=== PATIENT | female | born 1960 | race African-American/Black ===

== ENCOUNTER 2016-12-11 13:39 | Emergency (ER) | payer MEDICAID ==
[~2016-12-11] VITALS: Ht 167.6 cm; Wt 86.0 kg
[~2016-12-11 13:39] MED LIST: DOCU-138 PO; GABA-290 PO; INSU3INS6 SUBCUT; LISI-186 PO; METF500T4 PO; [UNRECOGNIZED DRUG - OTHER]
[2016-12-11] MEDS ORDERED: SODIUM CHLORIDE 0.9% 1,000 ML IV ONE ×2 (15:03→17:14)
[2016-12-11 15:20] LABS: BASOPHILS % 0.5 % (0.0-2.0); HEMATOCRIT. 35.9 % (36.0-48.0); HEMOGLOBIN. 11.6 g/dL (12.0-16.0); LYMPHOCYTES % 21.6 % (20.0-50.0); MEAN CORPUSCULAR HEMOGLOBIN 27.6 pg (28.0-32.0); MEAN CORPUSCULAR HGB CONC 32.3 g/dL (31.0-37.0); MEAN CORPUSCULAR VOLUME 85.3 fL (81.0-99.0); MEAN PLATELET VOLUME 9.2 fl (7.4-10.4); MONOCYTES % 7.6 % (2.0-8.0); NEUTROPHILS % 68.3 % (40.0-76.0); PLATELET 196 x1000/uL (130-400); RED CELL DISTRIBUTION WIDTH 12.5 % (11.6-14.6); WHITE BLOOD COUNT 7.8 x1000/uL (4.5-11.0)
[2016-12-11 15:27] LABS: CALCIUM 8.2 mg/dL (8.5-10.1); CHLORIDE 101 mEq/L (98-107); INDEX HEMOLYSI 1 (1-3); INDEX ICTERIC 1 (1-4); INDEX LIPEMIC 1 (1-3)
[2016-12-11 15:28] LABS: ALBUMIN 2.8 g/dL (3.4-5.0); ANION GAP 16; CARBON DIOXIDE 23 mEq/L (21-32); LIPASE 74 IU/L (73-393); UREA NITROGEN BLOOD 22 mg/dL (7-21)
[2016-12-11 15:34] LABS: ALANINE AMINOTRANSFERASE 11 IU/L (13-61); AMYLASE 27 IU/L (25-115); eGFR > 60 mL/min (>60)
[2016-12-11 15:35] LABS: BETA HYDROXYBUTYRATE 2.8 mMol/L (0.0-0.3); TROPONIN I < 0.02 ng/mL (0.00-0.04)
[2016-12-11 16:16] LABS: BG BASE EXCESS -4.3 mmol/L (-2.0-2.0); BG CARBOXYHEMOGLOBIN 0.5 % (0.5-1.5); BG DEOXYHEMOGLOBIN 3.4 % (0.0-5.0); BG FRACTION INSPIRED OXYGEN 21; BG HCO3 ACT 19.9 mmol/L (22.0-26.0); BG METHEMOGLOBIN 0.2 % (0.0-1.5); BG OXYGEN SATURATION 96.6 % (92.0-98.5); BG OXYHEMOGLOBIN 95.9 % (94.0-97.0); BG PH 7.386 (7.350-7.450); BG PO2 89.7 mmHg (75.0-100.0); BG SAMPLE SITE RIGHT BRACHIAL; BG TOTAL HEMOGLOBIN 11.9 g/dL (12.0-18.0); BG VENT MODE ROOM AIR
[2016-12-11 17:26] LABS: CLARITY URINE CLEAR (CLEAR); COLOR URINE YELLOW (YELLOW); GLUCOSE URINE 3+ (NEGATIVE); KETONES URINE 2+ (NEGATIVE); LEUKOCYTE ESTERASE URINE NEGATIVE (NEGATIVE); NITRITE URINE NEGATIVE (NEGATIVE); OCCULT BLOOD URINE NEGATIVE (NEGATIVE); PH URINE 5.5 (4.5-8.0); PROTEIN URINE NEGATIVE (NEGATIVE); SPECIFIC GRAVITY URINE 1.031 (1.005-1.030)
[2016-12-11 17:48] LABS: RBC URINE 0-2 /hpf (0-2); WBC URINE 0-2 /hpf (0-2)
[2016-12-11 17:49] LABS: BACTERIA URINE TRACE; SQUAMOUS EPITHELIAL CELL URINE 1+ /lpf (RARE/1+)
[2016-12-11 18:12] VITALS: BP 104/61
== END 2016-12-11 18:28 | disposition home or self-care (01) ==
LOC: ER 17:10
DX: E86.0 Dehydration (principal); E11.9 Type 2 diabetes mellitus without complications; I10 Essential (primary) hypertension; M79.7 Fibromyalgia; Z79.899 Other long term (current) drug therapy; Z79.84 Long term (current) use of oral hypoglycemic drugs
CPT/HCPCS: 36415; 36600; 71010; 80053; 81001; 82010; 82150; 82375; 82805; 82962; 83690; 84484; 85025; 93005; 96360; 96361; 99285; J7030; Z7610

== ENCOUNTER 2018-03-22 09:08 | Inpatient (IN) | payer MEDICAID ==
[2018-03-22] VITALS (13 sets, daily range): BP systolic 115–159; BP diastolic 57–89
[~2018-03-22] VITALS: Ht 167.6 cm; Wt 95.1 kg
[~2018-03-22 09:08] MED LIST changes: -METF500T4 PO; +METF500T6 PO
[2018-03-22] MEDS ORDERED: SODIUM CHLORIDE 0.9% 1,000 ML IV ONE ×2 (10:15→13:15)
[2018-03-22 10:27] LABS: BASOPHILS % 0.6 % (0.0-2.0); EOSINOPHILS % 0.2 % (0.0-5.0); HEMOGLOBIN. 13.1 g/dL (12.0-16.0); LYMPHOCYTES % 19.8 % (20.0-50.0); MEAN CORPUSCULAR HEMOGLOBIN 28.7 pg (28.0-32.0); MEAN CORPUSCULAR VOLUME 89.6 fL (81.0-99.0); MEAN PLATELET VOLUME 10.2 fl (7.4-10.4); MONOCYTES % 7.8 % (2.0-8.0); NEUTROPHILS % 71.6 % (40.0-76.0); PLATELET 225 x1000/uL (130-400); RED BLOOD CELL COUNT 4.58 mill/uL (4.2-5.4); RED CELL DISTRIBUTION WIDTH 13.4 % (11.6-14.6)
[2018-03-22 10:35] LABS: PROTHROMBIN TIME 9.6 sec (9.1-11.1)
[2018-03-22 12:45] LABS: CHLORIDE 103 mEq/L (98-107)
[2018-03-22 12:55] LABS: BETA HYDROXYBUTYRATE 8.8 mMol/L (0.0-0.3)
[2018-03-22] MEDS ORDERED: INSULIN REGULAR (DRIP) 100 UNITS in SODIUM CHLORIDE 0.9% 100 ML IV ONE (13:04)
[2018-03-22 13:05] LABS: CLARITY URINE CLEAR (CLEAR); COLOR URINE YELLOW (YELLOW); KETONES URINE 4+ (NEGATIVE); LEUKOCYTE ESTERASE URINE NEGATIVE (NEGATIVE); NITRITE URINE NEGATIVE (NEGATIVE); OCCULT BLOOD URINE TRACE (NEGATIVE); PROTEIN URINE TRACE (NEGATIVE); SPECIFIC GRAVITY URINE 1.026 (1.005-1.030); UROBILINOGEN URINE 0.2 E.U./dL (0.2-1.0)
[2018-03-22] MEDS ORDERED: DEXT 5%/0.45% NACL 1000ML 1,000 ML IV ONE (13:15)
[2018-03-22] MEDS ORDERED: INSULIN REGULAR (DRIP) 100 UNITS in SODIUM CHLORIDE 0.9% 99 ML IV ONE (13:30)
[2018-03-22] MEDS ORDERED: ONDANSETRON HCL 4MG/2ML VIAL IV PRN (13:45)
[2018-03-22] MEDS ORDERED: MORPHINE SULFATE 4 MG/ML CPJ (NOT FOR IM USE) IV PRN (13:45)
[2018-03-22] MEDS ORDERED: DEXT 5%/0.45% NACL 1000ML 1,000 ML IV SCH (13:45)
[2018-03-22 15:12] LABS: CHLORIDE 107 mEq/L (98-107)
[2018-03-22 15:19] LABS: PHOSPHORUS 2.1 mg/dL (2.5-4.9)
[2018-03-22] MEDS ORDERED: DEXTROSE 50% WATER 50ML SYRINGE IV PRN ×2 (16:30)
[2018-03-22] MEDS ORDERED: BLOOD SUGAR DIAGNOSTIC STRIP TEST SCH (16:30)
[2018-03-22 16:53] LABS: CHLORIDE 110 mEq/L (98-107)
[2018-03-22] MEDS: PANTOPRAZOLE SODIUM 40 MG/VIAL IV SCH (17:25)
[2018-03-22 18:54] LABS: CHLORIDE 108 mEq/L (98-107)
[2018-03-22] MEDS: POTASSIUM CHLORIDE INJ 40 MEQ in DEXT 5% WATER 250 ML IV NR ×2 (19:35→20:38)
[2018-03-22] MEDS: INSULIN REGULAR (DRIP) 100 UNITS in SODIUM CHLORIDE 0.9% 100 ML IV SCH (20:01)
[2018-03-22 20:55] LABS: CHLORIDE 107 mEq/L (98-107)
[2018-03-22] MEDS: DEXT 5%/0.45% NACL KCL 20MEQ/L 1,000 ML IV SCH (23:41)
[2018-03-23] VITALS (34 sets, daily range): BP systolic 92–138; BP diastolic 51–83
[2018-03-23] MEDS: DEXT 5%/0.45% NACL KCL 20MEQ/L 1,000 ML IV SCH ×2 (06:31→17:25)
[2018-03-23 06:32] LABS: CHLORIDE 110 mEq/L (98-107)
[2018-03-23] MEDS: PANTOPRAZOLE SODIUM 40 MG/VIAL IV SCH (09:23)
[2018-03-23 12:53] LABS: CHLORIDE 111 mEq/L (98-107)
[2018-03-23] MEDS ORDERED: INSULIN REGULAR (HUMULIN R) 300UNITS/3ML SUBCUT ONE (15:15)
[2018-03-23] MEDS ORDERED: SODIUM BICARBONATE 8.4% 1 MEQ/ML 50ML SYR IV ONE (15:15)
[2018-03-23] MEDS ORDERED: DEXTROSE 50% WATER 50ML SYRINGE IV ONE (15:15)
[2018-03-23 19:06] LABS: CHLORIDE 108 mEq/L (98-107)
[2018-03-23] MEDS: INSULIN REGULAR (DRIP) 100 UNITS in SODIUM CHLORIDE 0.9% 100 ML IV SCH (22:17)
[2018-03-24] VITALS (16 sets, daily range): BP systolic 90–139; BP diastolic 48–70
[2018-03-24] MEDS: DEXT 5%/0.45% NACL KCL 20MEQ/L 1,000 ML IV SCH (01:22)
[2018-03-24 06:19] LABS: CHLORIDE 111 mEq/L (98-107)
[2018-03-24] MEDS ORDERED: DEXTROSE 50% WATER 50ML SYRINGE IV PRN (07:15)
[2018-03-24] MEDS ORDERED: BLOOD SUGAR DIAGNOSTIC STRIP TEST SCH (07:20)
[2018-03-24] MEDS: INSULIN LISPRO 100 UNITS/ML SUBCUT SCH ×2 (07:21→12:32)
[2018-03-24] MEDS ORDERED: INSULIN GLARGINE UD 100 UNITS/ML SYR SUBCUT NR (08:30)
[2018-03-24 13:05] LABS: CHLORIDE 107 mEq/L (98-107)
[2018-03-24] MEDS ORDERED: INSULIN GLARGINE UD 100 UNITS/ML SYR SUBCUT SCH (22:00)
== END 2018-03-24 15:29 | disposition home or self-care (01) | DRG 420 ==
LOC: ER 09:43 → CVICU 13:15 → EDBEDREQSVC 13:16 → EDBEDREQ 13:16 → EDBEDREQTM 13:16 → ENRESERV 14:13 → MICUSO 15:24
PROVIDERS: ADMIT Internal Medicine; ATTEND Internal Medicine
DX: E11.10 Type 2 diabetes mellitus with ketoacidosis without coma (principal); E44.1 Mild protein-calorie malnutrition; I10 Essential (primary) hypertension; M79.7 Fibromyalgia; E87.1 Hypo-osmolality and hyponatremia
CPT/HCPCS: 36415; 71045; 80048; 80053; 81003; 82010; 82962; 83036; 83605; 83735; 83880; 84100; 84484; 85025; 85610; 96361; 96374; 99285; C9113; J1815; J2270; J2405; J3480; J3490; J7030; J7050; J7060

== ENCOUNTER 2020-08-05 07:25 | Inpatient (IN) | payer BC, MEDICAID ==
[~2020-08-05] VITALS: Ht 167.6 cm; Wt 83.6 kg
[~2020-08-05 07:25] MED LIST changes: +AMLO5TAB88 MT; +METF-415 MT; -METF500T6 PO; -[UNRECOGNIZED DRUG - OTHER]
[2020-08-05] MEDS ORDERED: ACETAMINOPHEN 325MG TABLET PO STA (08:34)
[2020-08-05 10:04] LABS: BASOPHILS % 0.4 % (0.0-2.0); CHLORIDE 96 mEq/L (98-107); EOSINOPHILS % 0.3 % (0.0-5.0); HEMATOCRIT. 40.3 % (36.0-48.0); HEMOGLOBIN. 12.8 g/dL (12.0-16.0); LYMPHOCYTES % 11.7 % (20.0-50.0); MEAN CORPUSCULAR HEMOGLOBIN 27.1 pg (28.0-32.0); MEAN CORPUSCULAR VOLUME 85.4 fL (81.0-99.0); MEAN PLATELET VOLUME 11.3 fl (7.4-10.4); MONOCYTES % 11.3 % (2.0-8.0); NEUTROPHILS % 76.3 % (40.0-76.0); PLATELET 134 x1000/uL (130-400); RED BLOOD CELL COUNT 4.73 mill/uL (4.2-5.4); RED CELL DISTRIBUTION WIDTH 12.2 % (11.6-14.6)
[2020-08-05 10:06] LABS: PROTHROMBIN TIME 10.6 sec (9.6-11.0)
[2020-08-05] MEDS ORDERED: PIPERACILLIN/TAZ 3.375G PREMIX 50 ML IV ONE (12:45)
[2020-08-05] MEDS ORDERED: VANCOMYCIN 1 G PREMIX 200 ML IV ONE (12:45)
[2020-08-05] MEDS ORDERED: DIPHENHYDRAMINE 50MG/ML VIAL IV PRN (12:45)
[2020-08-05] MEDS ORDERED: ACETAMINOPHEN 325MG TABLET PO PRN (12:45)
[2020-08-05] MEDS ORDERED: ONDANSETRON HCL 4MG/2ML INJ IV PRN (12:45)
[2020-08-05] MEDS ORDERED: CLONIDINE 0.1MG TABLET PO PRN (12:45)
[2020-08-05] MEDS ORDERED: VANCOMYCIN 1 G PREMIX 200 ML IV SCH (14:15)
[2020-08-05] MEDS ORDERED: DEXTROSE 50% WATER 50ML SYRINGE IV PRN (15:15)
[2020-08-05] MEDS: DEXAMETHASONE 10 MG/ML VIAL IV SCH (15:15)
[2020-08-05] MEDS: CEFTRIAXONE 1 G PREMIX 50 ML IV SCH (15:15)
[2020-08-05] MEDS: FAMOTIDINE 20MG/2ML VIAL IV SCH (16:26)
[2020-08-05] MEDS ORDERED: HYDROCODONE/ACETAMINOPHEN 5/325MG TABLET PO PRN (16:26)
[2020-08-05] MEDS ORDERED: ENOXAPARIN 40MG/0.4ML SYR SUBCUT SCH (16:45)
[2020-08-05] MEDS: BLOOD SUGAR DIAGNOSTIC STRIP TEST SCH ×2 (17:00→21:00)
[2020-08-05] MEDS: AZITHROMYCIN 500 MG in DEXT 5% WATER 250 ML IV SCH (17:00)
[2020-08-05 18:17] LABS: BG BASE EXCESS -6.9 mmol/L (-2.0-2.0); BG CARBOXYHEMOGLOBIN 0.6 % (0.5-1.5); BG DEOXYHEMOGLOBIN 0.9 % (0.0-5.0); BG HCO3 ACT 15.2 mmol/L (22.0-26.0); BG METHEMOGLOBIN 0.1 % (0.0-1.5); BG OXYGEN SATURATION 99.1 % (92.0-98.5); BG OXYHEMOGLOBIN 98.4 % (94.0-97.0); BG PCO2 22.4 mmHg (35.0-45.0); BG PH 7.449 (7.350-7.450); BG PO2 144.3 mmHg (75.0-100.0); BG SAMPLE SITE RIGHT RADIAL; BG TOTAL HEMOGLOBIN 12.6 g/dL (12.0-18.0); BG VENT MODE ROOM AIR
[2020-08-05] MEDS: INSULIN LISPRO 100 UNITS/ML SUBCUT SCH ×2 (18:20→21:00)
[2020-08-05 19:41] LABS: CLARITY URINE CLOUDY (CLEAR); COLOR URINE YELLOW (YELLOW); KETONES URINE 3+ (NEGATIVE); LEUKOCYTE ESTERASE URINE 1+ (NEGATIVE); NITRITE URINE NEGATIVE (NEGATIVE); OCCULT BLOOD URINE NEGATIVE (NEGATIVE); PH URINE 5.5 (4.5-8.0); PROTEIN URINE 1+ (NEGATIVE); SPECIFIC GRAVITY URINE 1.023 (1.005-1.030)
[2020-08-05] MEDS: ASCORBIC ACID 500 MG TABLET PO SCH (21:00)
[2020-08-05] MEDS ORDERED: INSULIN GLARGINE UD 100 UNITS/ML SYR SUBCUT SCH (22:00)
[2020-08-05] MEDS: VANCOMYCIN 750 MG PREMIX 150 ML IV SCH (23:00)
[2020-08-06 01:40] LABS: CHLORIDE 99 mEq/L (98-107)
[2020-08-06] MEDS: VANCOMYCIN 750 MG PREMIX 150 ML IV SCH (07:00)
[2020-08-06] MEDS: INSULIN LISPRO 100 UNITS/ML SUBCUT SCH ×4 (08:20→23:03)
[2020-08-06] MEDS: ASCORBIC ACID 500 MG TABLET PO SCH ×2 (09:00→23:03)
[2020-08-06] MEDS: CHOLECALCIFEROL (D3) 1000 UNIT TABLET PO SCH (09:00)
[2020-08-06] MEDS: FAMOTIDINE 20MG/2ML VIAL IV SCH (09:00)
[2020-08-06] MEDS: ZINC SULFATE 220 MG ( 50 ) CAPSULE PO SCH (09:00)
[2020-08-06] MEDS: BLOOD SUGAR DIAGNOSTIC STRIP TEST SCH ×4 (09:16→21:00)
[2020-08-06 10:19] LABS: BASOPHILS % 0.5 % (0.0-2.0); EOSINOPHILS % 0.4 % (0.0-5.0); HEMATOCRIT. 35.6 % (36.0-48.0); HEMOGLOBIN. 11.4 g/dL (12.0-16.0); LYMPHOCYTES % 19.7 % (20.0-50.0); MEAN CORPUSCULAR HEMOGLOBIN 26.9 pg (28.0-32.0); MEAN CORPUSCULAR VOLUME 83.7 fL (81.0-99.0); MEAN PLATELET VOLUME 10.8 fl (7.4-10.4); MONOCYTES % 14.9 % (2.0-8.0); NEUTROPHILS % 64.5 % (40.0-76.0); PLATELET 140 x1000/uL (130-400); RED BLOOD CELL COUNT 4.25 mill/uL (4.2-5.4); RED CELL DISTRIBUTION WIDTH 11.8 % (11.6-14.6)
[2020-08-06 10:29] LABS: CHLORIDE 100 mEq/L (98-107)
[2020-08-06 10:36] LABS: LDL CHOLESTEROL 53 mg/dL (5-100)
[2020-08-06 10:38] LABS: HDL CHOLESTEROL 54 mg/dL (40-59); VANCOMYCIN TROUGH 8.5 ug/mL (5.0-10.0)
[2020-08-06] MEDS ORDERED: VANCOMYCIN 1 G PREMIX 200 ML IV SCH (11:00)
[2020-08-06] MEDS: DEXAMETHASONE 10 MG/ML VIAL IV SCH (12:37)
[2020-08-06] MEDS: ENOXAPARIN 40MG/0.4ML SYR SUBCUT SCH (15:00)
[2020-08-06] MEDS: CEFTRIAXONE 1 G PREMIX 50 ML IV SCH (15:15)
[2020-08-06] MEDS: AZITHROMYCIN 500 MG in DEXT 5% WATER 250 ML IV SCH (17:00)
[2020-08-06] MEDS ORDERED: INSULIN GLARGINE UD 100 UNITS/ML SYR SUBCUT SCH (22:00)
[2020-08-06 23:00] VITALS: BP_SYST 128
[2020-08-07 04:00] VITALS: BP 118/76
[2020-08-07 05:31] LABS: CHLORIDE 100 mEq/L (98-107)
[2020-08-07 06:30] LABS: HEMATOCRIT 33.5 % (36.0-48.0); HEMOGLOBIN 10.9 g/dL (12.0-16.0); MEAN CORPUSCULAR HEMOGLOBIN 27.5 pg (28.0-32.0); MEAN CORPUSCULAR VOLUME 84.3 fL (81.0-99.0); PLATELET 166 x1000/uL (130-400); RED BLOOD CELL COUNT 3.98 mill/uL (4.2-5.4); RED CELL DISTRIBUTION WIDTH 11.7 % (11.6-14.6)
[2020-08-07] MEDS: BLOOD SUGAR DIAGNOSTIC STRIP TEST SCH ×4 (06:39→21:59)
[2020-08-07 08:00] VITALS: BP 118/72
[2020-08-07] MEDS: INSULIN LISPRO 100 UNITS/ML SUBCUT SCH ×4 (08:31→22:02)
[2020-08-07] MEDS: ZINC SULFATE 220 MG ( 50 ) CAPSULE PO SCH (09:04)
[2020-08-07] MEDS: ASCORBIC ACID 500 MG TABLET PO SCH ×2 (09:04→21:59)
[2020-08-07] MEDS: FAMOTIDINE 20MG/2ML VIAL IV SCH (09:04)
[2020-08-07] MEDS: CHOLECALCIFEROL (D3) 1000 UNIT TABLET PO SCH (09:04)
[2020-08-07] MEDS: DEXAMETHASONE 10 MG/ML VIAL IV SCH (09:05)
[2020-08-07] MEDS: ENOXAPARIN 40MG/0.4ML SYR SUBCUT SCH (09:05)
[2020-08-07 12:00] VITALS: BP 120/76
[2020-08-07 16:00] VITALS: BP 116/64
[2020-08-07] MEDS ORDERED: INSULIN LISPRO 100 UNITS/ML SUBCUT NR (18:00)
[2020-08-07] MEDS ORDERED: CEFTRIAXONE 1,000 MG in DEXTROSE 5% WATER 50 ML IV SCH (20:00)
[2020-08-07] MEDS: AZITHROMYCIN 500 MG in DEXT 5% WATER 250 ML IV SCH (21:58)
[2020-08-07] MEDS: INSULIN GLARGINE UD 100 UNITS/ML SYR SUBCUT SCH (22:02)
[2020-08-08] VITALS: BP 101/59
[2020-08-08] MEDS: TEMAZEPAM 15MG CAPSULE PO PRN ×2 (00:46→23:22)
[2020-08-08 04:00] VITALS: BP 115/57
[2020-08-08] MEDS: BLOOD SUGAR DIAGNOSTIC STRIP TEST SCH ×4 (06:25→21:48)
[2020-08-08] MEDS: INSULIN LISPRO 100 UNITS/ML SUBCUT SCH ×4 (06:27→21:47)
[2020-08-08 08:00] VITALS: BP 111/63
[2020-08-08] MEDS: ENOXAPARIN 40MG/0.4ML SYR SUBCUT SCH (08:35)
[2020-08-08] MEDS: DEXAMETHASONE 10 MG/ML VIAL IV SCH (08:35)
[2020-08-08] MEDS: ASCORBIC ACID 500 MG TABLET PO SCH ×2 (08:35→21:45)
[2020-08-08] MEDS: FAMOTIDINE 20MG/2ML VIAL IV SCH ×2 (08:35→17:23)
[2020-08-08] MEDS: CHOLECALCIFEROL (D3) 1000 UNIT TABLET PO SCH (08:35)
[2020-08-08] MEDS: ZINC SULFATE 220 MG ( 50 ) CAPSULE PO SCH (08:35)
[2020-08-08] MEDS: INSULIN GLARGINE UD 100 UNITS/ML SYR SUBCUT SCH ×2 (10:02→23:23)
[2020-08-08 12:00] VITALS: BP 110/65
[2020-08-08] MEDS ORDERED: INSULIN LISPRO 100 UNITS/ML SUBCUT NR (12:45)
[2020-08-08 16:00] VITALS: BP 109/65
[2020-08-08] MEDS ORDERED: AZITHROMYCIN 500 MG TABLET PO SCH (17:00)
[2020-08-08] MEDS: METOCLOPRAMIDE HCL 10MG/2ML VIAL IV SCH ×2 (17:22→23:22)
[2020-08-08] MEDS: ALBUTEROL 6.7GM HFA INHALER ORI SCH ×2 (17:34→23:21)
[2020-08-08 20:00] VITALS: BP 111/64
[2020-08-08] MEDS ORDERED: INSULIN LISPRO 100 UNITS/ML SUBCUT SCH (20:45)
[2020-08-08] MEDS ORDERED: INSULIN GLARGINE UD 100 UNITS/ML SYR SUBCUT SCH (22:00)
[2020-08-09] VITALS (7 sets, daily range): BP systolic 92–117; BP diastolic 62–70
[2020-08-09] MEDS: BLOOD SUGAR DIAGNOSTIC STRIP TEST SCH ×4 (06:39→21:13)
[2020-08-09] MEDS: METOCLOPRAMIDE HCL 10MG/2ML VIAL IV SCH ×4 (06:39→23:26)
[2020-08-09] MEDS: ALBUTEROL 6.7GM HFA INHALER ORI SCH ×2 (06:39→10:27)
[2020-08-09] MEDS: INSULIN LISPRO 100 UNITS/ML SUBCUT SCH ×4 (06:40→21:16)
[2020-08-09] MEDS: ZINC SULFATE 220 MG ( 50 ) CAPSULE PO SCH (08:38)
[2020-08-09] MEDS: ENOXAPARIN 40MG/0.4ML SYR SUBCUT SCH (08:38)
[2020-08-09] MEDS: ASCORBIC ACID 500 MG TABLET PO SCH ×2 (08:38→21:13)
[2020-08-09] MEDS: CHOLECALCIFEROL (D3) 1000 UNIT TABLET PO SCH (08:39)
[2020-08-09] MEDS: FAMOTIDINE 20MG/2ML VIAL IV SCH ×2 (08:39→17:56)
[2020-08-09] MEDS: DEXAMETHASONE 4MG/ML 1ML VIAL IV SCH (08:39)
[2020-08-09] MEDS: INSULIN GLARGINE UD 100 UNITS/ML SYR SUBCUT SCH ×2 (10:24→23:29)
[2020-08-09] MEDS: TEMAZEPAM 15MG CAPSULE PO PRN (21:13)
[2020-08-10] MEDS: METOCLOPRAMIDE HCL 10MG/2ML VIAL IV SCH ×3 (06:11→17:30)
[2020-08-10] MEDS: BLOOD SUGAR DIAGNOSTIC STRIP TEST SCH ×4 (07:12→21:09)
[2020-08-10] MEDS: INSULIN LISPRO 100 UNITS/ML SUBCUT SCH ×4 (07:50→22:44)
[2020-08-10 08:00] VITALS: BP 117/62
[2020-08-10] MEDS: CHOLECALCIFEROL (D3) 1000 UNIT TABLET PO SCH (09:49)
[2020-08-10] MEDS: ASCORBIC ACID 500 MG TABLET PO SCH ×2 (09:49→22:07)
[2020-08-10] MEDS: ZINC SULFATE 220 MG ( 50 ) CAPSULE PO SCH (09:49)
[2020-08-10] MEDS: ENOXAPARIN 40MG/0.4ML SYR SUBCUT SCH (09:49)
[2020-08-10] MEDS: FAMOTIDINE 20MG/2ML VIAL IV SCH ×2 (09:49→17:30)
[2020-08-10] MEDS: DEXAMETHASONE 4MG/ML 1ML VIAL IV SCH (09:55)
[2020-08-10] MEDS: INSULIN GLARGINE UD 100 UNITS/ML SYR SUBCUT SCH ×2 (10:12→23:38)
[2020-08-10 12:00] VITALS: BP 110/69
[2020-08-10 16:00] VITALS: BP 119/79
[2020-08-10 20:29] VITALS: BP 141/76
[2020-08-10] MEDS: TEMAZEPAM 15MG CAPSULE PO PRN (23:30)
[2020-08-10] MEDS: ALBUTEROL 6.7GM HFA INHALER ORI SCH (23:31)
[2020-08-11] MEDS: METOCLOPRAMIDE HCL 10MG/2ML VIAL IV SCH ×5 (01:20→23:33)
[2020-08-11] MEDS: BLOOD SUGAR DIAGNOSTIC STRIP TEST SCH ×4 (07:08→21:58)
[2020-08-11] MEDS: ALBUTEROL 6.7GM HFA INHALER ORI SCH (07:08)
[2020-08-11] MEDS: INSULIN LISPRO 100 UNITS/ML SUBCUT SCH ×4 (07:50→22:02)
[2020-08-11 09:04] VITALS: BP 128/69
[2020-08-11] MEDS: ENOXAPARIN 40MG/0.4ML SYR SUBCUT SCH (09:15)
[2020-08-11] MEDS: ZINC SULFATE 220 MG ( 50 ) CAPSULE PO SCH (09:18)
[2020-08-11] MEDS: CHOLECALCIFEROL (D3) 1000 UNIT TABLET PO SCH (09:18)
[2020-08-11] MEDS: ASCORBIC ACID 500 MG TABLET PO SCH ×2 (09:18→21:59)
[2020-08-11] MEDS: FAMOTIDINE 20MG/2ML VIAL IV SCH ×2 (09:19→18:02)
[2020-08-11] MEDS: DEXAMETHASONE 4MG/ML 1ML VIAL IV SCH (09:19)
[2020-08-11] MEDS: INSULIN GLARGINE UD 100 UNITS/ML SYR SUBCUT SCH ×2 (09:59→23:42)
[2020-08-11 20:00] VITALS: BP 136/82
[2020-08-11] MEDS: TEMAZEPAM 15MG CAPSULE PO PRN (21:59)
[2020-08-12] MEDS: METOCLOPRAMIDE HCL 10MG/2ML VIAL IV SCH ×2 (05:50→11:56)
[2020-08-12] MEDS: BLOOD SUGAR DIAGNOSTIC STRIP TEST SCH ×2 (06:43→12:32)
[2020-08-12] MEDS: INSULIN LISPRO 100 UNITS/ML SUBCUT SCH ×2 (07:50→13:12)
[2020-08-12 08:00] VITALS: BP 118/73
[2020-08-12] MEDS: CHOLECALCIFEROL (D3) 1000 UNIT TABLET PO SCH (09:29)
[2020-08-12] MEDS: DEXAMETHASONE 4MG/ML 1ML VIAL IV SCH (09:30)
[2020-08-12] MEDS: ZINC SULFATE 220 MG ( 50 ) CAPSULE PO SCH (09:30)
[2020-08-12] MEDS: ASCORBIC ACID 500 MG TABLET PO SCH (09:30)
[2020-08-12] MEDS: FAMOTIDINE 20MG/2ML VIAL IV SCH (09:30)
[2020-08-12] MEDS: ENOXAPARIN 40MG/0.4ML SYR SUBCUT SCH (09:30)
[2020-08-12] MEDS: INSULIN GLARGINE UD 100 UNITS/ML SYR SUBCUT SCH (10:57)
[2020-08-12] MEDS: ALBUTEROL 6.7GM HFA INHALER ORI SCH (11:56)
[2020-08-12 12:01] LABS: HEMATOCRIT 34.8 % (36.0-48.0); HEMOGLOBIN 11.1 g/dL (12.0-16.0); MEAN CORPUSCULAR VOLUME 84.5 fL (81.0-99.0); PLATELET 328 x1000/uL (130-400); RED BLOOD CELL COUNT 4.12 mill/uL (4.2-5.4)
[2020-08-12 12:24] LABS: CHLORIDE 99 mEq/L (98-107)
[2020-08-12 17:28] VITALS: BP 118/73
[2020-08-13] MEDS ORDERED: DEXAMETHASONE 4MG/ML 1ML VIAL IV SCH (09:00)
== END 2020-08-12 18:15 | DRG 177 ==
LOC: ER 07:25 → 8WST 12:38 → EDBEDREQSVC 12:54 → EDBEDREQTM 12:54 → EDBEDREQ 12:54 → SUPCPDRO 15:04 → EDBEDREQTM 17:36 → EDBEDREQ 17:36 → ENRESERV 08-06 20:39 → 6WST 08-09 16:26
PROVIDERS: ADMIT Internal Medicine; ATTEND Internal Medicine
DX: U07.1 COVID-19 (principal); J12.82 Pneumonia due to coronavirus disease 2019; E87.1 Hypo-osmolality and hyponatremia; E87.2 Acidosis; R06.03 Acute respiratory distress; D72.810 Lymphocytopenia; E11.65 Type 2 diabetes mellitus with hyperglycemia; E11.43 Type 2 diabetes mellitus with diabetic autonomic (poly)neuropathy; K31.84 Gastroparesis; E78.5 Hyperlipidemia, unspecified; T38.0X5A Adverse effect of glucocorticoids and synthetic analogues, initial encounter; I10 Essential (primary) hypertension; Z79.4 Long term (current) use of insulin; Z79.899 Other long term (current) drug therapy; Y92.89 Other specified places as the place of occurrence of the external cause; R53.1 Weakness; E80.6 Other disorders of bilirubin metabolism
CPT/HCPCS: 36415; 36600; 71045; 80048; 80053; 80061; 80202; 81003; 82375; 82728; 82805; 82962; 83036; 83605; 83615; 84145; 84443; 84484; 85025; 85027; 85379; 86141; 87635; 93005; 93970; 96365; 96375; 99285; C9803; J0456; J0696; J1100; J1650; J1815; J2405; J2543; J2765; J3370; J3490; J7040; J7060

== ENCOUNTER 2022-07-29 19:14 | Inpatient (IN) | payer BC, OTHER ==
[~2022-07-29] VITALS: Ht 167.6 cm; Wt 101.0 kg
[~2022-07-29 19:14] MED LIST changes: +AMLO5TAB4 MT; +FLAS1EAC2 TP; +INSLIS SUBCUT; +INSU100I28 SQ; -INSU3INS6 SUBCUT; +LANC1COM2 MC; -LISI-186 PO; -METF-415 MT
[2022-07-29 20:53] LABS: BASOPHILS % 0.5 % (0.0-2.0); EOSINOPHILS % 2.9 % (0.0-5.0); HEMATOCRIT. 32.9 % (36.0-48.0); HEMOGLOBIN. 10.3 g/dL (12.0-16.0); LYMPHOCYTES % 31.9 % (20.0-50.0); MEAN CORPUSCULAR HEMOGLOBIN 27.1 pg (28.0-32.0); MEAN CORPUSCULAR VOLUME 86.5 fL (81.0-99.0); MEAN PLATELET VOLUME 10.1 fl (7.4-10.4); MONOCYTES % 7.9 % (2.0-8.0); NEUTROPHILS % 56.8 % (40.0-76.0); PLATELET 137 x1000/uL (130-400); RED CELL DISTRIBUTION WIDTH 14.4 % (11.6-14.6)
[2022-07-29 21:01] LABS: CHLORIDE 113 mEq/L (98-107)
[2022-07-30] MEDS ORDERED: FUROSEMIDE 40MG/4ML VIAL IV ONE (01:00)
[2022-07-30] MEDS ORDERED: FUROSEMIDE 40MG/4ML VIAL IV NR (03:00)
[2022-07-30] MEDS ORDERED: DEXTROSE 50% WATER 50ML SYRINGE IV PRN (10:30)
[2022-07-30] MEDS: BLOOD SUGAR DIAGNOSTIC STRIP TEST SCH ×3 (12:52→21:19)
[2022-07-30] MEDS: INSULIN LISPRO 100 UNITS/ML SUBCUT SCH ×3 (12:59→21:23)
[2022-07-30] MEDS: LOSARTAN POTASSIUM 50 MG TABLET PO SCH (15:48)
[2022-07-30 20:00] VITALS: BP 157/82
[2022-07-30] MEDS ORDERED: LISI-186 PO (22:27)
[2022-07-30] MEDS ORDERED: IBUP-2028 PO (22:27)
[2022-07-30] MEDS ORDERED: FERR-63 PO (22:27)
[2022-07-30] MEDS ORDERED: METF-416 PO (22:27)
[2022-07-30] MEDS ORDERED: SIMV-43 PO (22:27)
[2022-07-30] MEDS ORDERED: CLONIDINE 0.1MG TABLET PO PRN (23:30)
[2022-07-30] MEDS ORDERED: ONDANSETRON HCL 4MG/2ML INJ IV PRN (23:30)
[2022-07-30] MEDS ORDERED: ACETAMINOPHEN 325MG TABLET PO PRN (23:30)
[2022-07-30] MEDS ORDERED: LISINOPRIL 5MG TABLET PO SCH (23:30)
[2022-07-31] VITALS: BP 122/61
[2022-07-31] MEDS: FUROSEMIDE 40MG/4ML VIAL IVP SCH ×2 (00:21→08:59)
[2022-07-31] MEDS: GABAPENTIN 300MG CAPSULE PO SCH ×3 (00:21→23:51)
[2022-07-31] MEDS: ENOXAPARIN 30MG/0.3ML SYR SUBCUT SCH ×3 (00:22→23:51)
[2022-07-31 04:00] VITALS: BP 128/69
[2022-07-31 05:24] LABS: *AMPHETAMINES SCREEN URINE NEGATIVE (NEGATIVE); *BARBITURATES SCREEN URINE NEGATIVE (NEGATIVE); *BENZODIAZEPINES SCREEN URINE NEGATIVE (NEGATIVE); *COCAINE SCREEN URINE NEGATIVE (NEGATIVE); CANNABINOID URINE SCREEN NEGATIVE (NEGATIVE); METHADONE URINE SCREEN NEGATIVE (NEGATIVE); OPIATES URINE SCREEN NEGATIVE (NEGATIVE); PHENCYCLIDINE URINE SCREEN NEGATIVE (NEGATIVE)
[2022-07-31 06:53] LABS: CREATINE KINASE 143 IU/L (26-192); CREATINE KINASE MB FRACTION 1.6 ng/mL (0.5-3.6)
[2022-07-31] MEDS: BLOOD SUGAR DIAGNOSTIC STRIP TEST SCH ×4 (07:40→21:11)
[2022-07-31 08:00] VITALS: BP 143/75
[2022-07-31] MEDS: INSULIN LISPRO 100 UNITS/ML SUBCUT SCH ×4 (08:10→21:16)
[2022-07-31] MEDS: LOSARTAN POTASSIUM 50 MG TABLET PO SCH (08:59)
[2022-07-31] MEDS: AMLODIPINE 5MG TABLET PO SCH ×2 (08:59→16:49)
[2022-07-31 11:28] LABS: HEMATOCRIT. 31.4 % (36.0-48.0); HEMOGLOBIN. 9.9 g/dL (12.0-16.0); MEAN CORPUSCULAR HEMOGLOBIN 27.1 pg (28.0-32.0); MEAN CORPUSCULAR VOLUME 86.4 fL (81.0-99.0); MEAN PLATELET VOLUME 11.5 fl (7.4-10.4); PLATELET 134 x1000/uL (130-400); RED BLOOD CELL COUNT 3.63 mill/uL (4.2-5.4); RED CELL DISTRIBUTION WIDTH 14.1 % (11.6-14.6)
[2022-07-31 11:38] LABS: CHLORIDE 111 mEq/L (98-107)
[2022-07-31 12:00] VITALS: BP 142/75
[2022-07-31] MEDS ORDERED: AMLO5TAB4 MT (15:43)
[2022-07-31] MEDS ORDERED: FURO-151 MT (15:43)
[2022-07-31 16:00] VITALS: BP 142/76
[2022-07-31 17:31] LABS: CREATINE KINASE MB FRACTION 1.9 ng/mL (0.5-3.6)
[2022-07-31 20:00] VITALS: BP 143/62
[2022-07-31] MEDS ORDERED: ATORVASTATIN CALCIUM 40MG TABLET PO SCH (21:00)
[2022-07-31] MEDS: CARVEDILOL 3.125 MG TABLET PO SCH (21:15)
[2022-07-31] MEDS ORDERED: INSULIN GLARGINE 100 UNITS/ML SUBCUT SCH (22:00)
[2022-08-01] VITALS: BP 119/53
[2022-08-01 00:35] LABS: PLATELET ESTIMATE NORMAL
[2022-08-01 02:21] LABS: CLARITY URINE CLOUDY (CLEAR); COLOR URINE YELLOW (YELLOW); KETONES URINE TRACE (NEGATIVE); LEUKOCYTE ESTERASE URINE 1+ (NEGATIVE); NITRITE URINE POSITIVE (NEGATIVE); OCCULT BLOOD URINE 1+ (NEGATIVE); PROTEIN URINE 1+ (NEGATIVE); SPECIFIC GRAVITY URINE 1.028 (1.005-1.030)
[2022-08-01 04:00] VITALS: BP 110/48
[2022-08-01 06:34] LABS: BASOPHILS % 0.5 % (0.0-2.0); EOSINOPHILS % 2.9 % (0.0-5.0); HEMATOCRIT. 29.1 % (36.0-48.0); HEMOGLOBIN. 9.3 g/dL (12.0-16.0); LYMPHOCYTES % 36.3 % (20.0-50.0); MEAN CORPUSCULAR HEMOGLOBIN 27.2 pg (28.0-32.0); MEAN CORPUSCULAR VOLUME 85.2 fL (81.0-99.0); MEAN PLATELET VOLUME 9.8 fl (7.4-10.4); MONOCYTES % 12.3 % (2.0-8.0); PLATELET 138 x1000/uL (130-400); RED BLOOD CELL COUNT 3.41 mill/uL (4.2-5.4); RED CELL DISTRIBUTION WIDTH 14.2 % (11.6-14.6)
[2022-08-01 06:47] LABS: CHLORIDE 105 mEq/L (98-107)
[2022-08-01] MEDS: BLOOD SUGAR DIAGNOSTIC STRIP TEST SCH ×2 (07:40→12:40)
[2022-08-01 08:00] VITALS: BP 139/72
[2022-08-01] MEDS: FUROSEMIDE 40MG/4ML VIAL IVP SCH (08:30)
[2022-08-01] MEDS: LOSARTAN POTASSIUM 50 MG TABLET PO SCH (08:31)
[2022-08-01] MEDS: CARVEDILOL 3.125 MG TABLET PO SCH (08:31)
[2022-08-01] MEDS: AMLODIPINE 5MG TABLET PO SCH (08:31)
[2022-08-01] MEDS: INSULIN LISPRO 100 UNITS/ML SUBCUT SCH ×2 (08:32→12:49)
[2022-08-01 11:19] VITALS: BP 139/72
[2022-08-01 12:00] VITALS: BP 159/82
[2022-08-01] MEDS ORDERED: LISI10TA26 MT (12:40)
[2022-08-01] MEDS ORDERED: COR3 MT (12:40)
[2022-08-01] MEDS ORDERED: FURO-151 MT (12:40)
[2022-08-01] MEDS ORDERED: AMLO5TAB4 MT (12:40)
[2022-08-01] MEDS: GABAPENTIN 300MG CAPSULE PO SCH (12:47)
[2022-08-01] MEDS: ENOXAPARIN 30MG/0.3ML SYR SUBCUT SCH (12:49)
== END 2022-08-01 12:50 | disposition home or self-care (01) | DRG 293 ==
LOC: ER 19:14 → 7WST 07-30 03:10 → EDBEDREQ 07-30 03:17 → EDBEDREQTM 07-30 03:17
PROVIDERS: ADMIT Internal Medicine; ATTEND Internal Medicine
DX: I11.0 Hypertensive heart disease with heart failure (principal); E11.9 Type 2 diabetes mellitus without complications; E78.5 Hyperlipidemia, unspecified; I50.9 Heart failure, unspecified; I42.9 Cardiomyopathy, unspecified; D64.9 Anemia, unspecified; E11.40 Type 2 diabetes mellitus with diabetic neuropathy, unspecified; R74.01 Elevation of levels of liver transaminase levels; Z79.899 Other long term (current) drug therapy
CPT/HCPCS: 36415; 71045; 80048; 80053; 80061; 80305; 81003; 82550; 82553; 82962; 83036; 83880; 84484; 85025; 87077; 87186; 93005; 93306; 93970; 96372; 96374; 99285; J1650; J1815; J1940

== ENCOUNTER 2022-10-28 13:28 | Inpatient (IN) | payer BC, OTHER ==
[~2022-10-28] VITALS: Ht 165.1 cm; Wt 87.5 kg
[~2022-10-28 13:28] MED LIST changes: -AMLO5TAB88 MT; +COR3 MT; +FERR-63 PO; +FURO-151 MT; +LISI-186 PO; +LISI10TA26 MT; +METF-416 PO; +SIMV-43 PO
[2022-10-28] MEDS ORDERED: ONDANSETRON HCL 4MG/2ML INJ IV STA (14:45)
[2022-10-28] MEDS ORDERED: MORPHINE SULFATE 4 MG/ML CPJ (NOT FOR IM USE) IV STA (14:45)
[2022-10-28] MEDS ORDERED: SODIUM CHLORIDE 0.9% 1,000 ML IV ONE (14:45)
[2022-10-28 16:24] LABS: HEMATOCRIT. 40.9 % (36.0-48.0); HEMOGLOBIN. 12.3 g/dL (12.0-16.0); MEAN CORPUSCULAR HEMOGLOBIN 26.5 pg (28.0-32.0); MEAN PLATELET VOLUME 10.9 fl (7.4-10.4); PLATELET 187 x1000/uL (130-400); RED BLOOD CELL COUNT 4.64 mill/uL (4.2-5.4); RED CELL DISTRIBUTION WIDTH 15.1 % (11.6-14.6)
[2022-10-28] MEDS ORDERED: ONDANSETRON HCL 4MG/2ML INJ IV NR (16:45)
[2022-10-28] MEDS ORDERED: MORPHINE SULFATE 4 MG/ML CPJ (NOT FOR IM USE) IV NR (16:45)
[2022-10-28 17:06] LABS: CLARITY URINE CLOUDY (CLEAR); COLOR URINE YELLOW (YELLOW); KETONES URINE 1+ (NEGATIVE); LEUKOCYTE ESTERASE URINE 1+ (NEGATIVE); NITRITE URINE NEGATIVE (NEGATIVE); OCCULT BLOOD URINE 3+ (NEGATIVE); PROTEIN URINE NEGATIVE (NEGATIVE); SPECIFIC GRAVITY URINE 1.025 (1.005-1.030); UROBILINOGEN URINE 0.2 E.U./dL (0.2-1.0)
[2022-10-28 17:07] LABS: NUCLEATED RED BLOOD CELLS 1 /100 WBC; PLATELET ESTIMATE NORMAL
[2022-10-28 18:31] LABS: CHLORIDE 92 mEq/L (98-107)
[2022-10-28 18:32] LABS: PARTIAL THROMBOPLASTIN TIME 34.8 sec (23.4-31.0); PROTHROMBIN TIME 10.9 sec (9.6-11.0)
[2022-10-28] MEDS ORDERED: CEFTRIAXONE 1GM PREMIX 50 ML IV ONE (18:45)
[2022-10-28] MEDS ORDERED: SODIUM CHLORIDE 0.9% 1,000 ML IV STA (19:18)
[2022-10-28] MEDS ORDERED: IOHEXOL-300 100 ML BOTTLE ONE (19:22)
[2022-10-28] MEDS ORDERED: INSULIN REGULAR (DRIP) 100 UNITS in SODIUM CHLORIDE 0.9% 100 ML IV ONE (19:30)
[2022-10-28] MEDS: INSULIN REGULAR 100U/100ML PMX 100 ML IV PRN (21:11)
[2022-10-28] MEDS: BLOOD SUGAR DIAGNOSTIC STRIP TEST SCH ×2 (21:12→23:00)
[2022-10-28 21:17] LABS: BG BASE EXCESS -9.9 mmol/L (-2.0-2.0); BG CARBOXYHEMOGLOBIN 0.8 % (0.5-1.5); BG DEOXYHEMOGLOBIN 2.9 % (0.0-5.0); BG FRACTION INSPIRED OXYGEN 21; BG HCO3 ACT 15.1 mmol/L (22.0-26.0); BG METHEMOGLOBIN 0.4 % (0.0-1.5); BG OXYGEN SATURATION 97.1 % (92.0-98.5); BG OXYHEMOGLOBIN 95.9 % (94.0-97.0); BG PCO2 30.9 mmHg (35.0-45.0); BG PH 7.307 (7.350-7.450); BG PO2 95.4 mmHg (75.0-100.0); BG SAMPLE SITE RIGHT RADIAL; BG TOTAL HEMOGLOBIN 12.8 g/dL (12.0-18.0); BG VENT MODE ROOM AIR
[2022-10-28 21:20] LABS: PHOSPHORUS 5.3 mg/dL (2.5-4.9)
[2022-10-28] MEDS ORDERED: PIPERACILLIN/TAZ 3.375G PREMIX 50 ML IV NR (22:45)
[2022-10-28] MEDS ORDERED: ALBUMIN HUMAN 25GM/100ML (25%) IV NR (23:00)
[2022-10-28 23:15] LABS: PHOSPHORUS 5.2 mg/dL (2.5-4.9)
[2022-10-28] MEDS ORDERED: SODIUM CHL 0.9% + KCL 20MEQ/L 1,000 ML IV PRN (23:45)
[2022-10-29] VITALS (77 sets, daily range): BP systolic 71–174; BP diastolic 36–92
[2022-10-29] MEDS: BLOOD SUGAR DIAGNOSTIC STRIP TEST SCH ×23 (00:35→23:34)
[2022-10-29] MEDS: INSULIN REGULAR 100U/100ML PMX 100 ML IV PRN (06:22)
[2022-10-29] MEDS: NOREPINEPHRINE 8 MG in DEXTROSE 5% WATER 250 ML IV PRN (07:58)
[2022-10-29] MEDS: PIPERACILLIN/TAZOBACTAM 3.375G in DEXT 5% WATER 50ML IV SCH ×3 (07:58→22:10)
[2022-10-29] MEDS: DEXT 5%/0.9% NACL 1,000 ML IV PRN ×2 (07:58→16:16)
[2022-10-29] MEDS ORDERED: INSULIN REGULAR (DRIP) 100 UNITS in SODIUM CHLORIDE 0.9% 99 ML IV PRN (14:45)
[2022-10-29] MEDS ORDERED: DEXTROSE 50% WATER 50ML SYRINGE IV PRN ×2 (15:00→23:00)
[2022-10-29] MEDS ORDERED: INSULIN REGULAR 100U/100ML PMX 100 ML IV SCH (16:00)
[2022-10-29] MEDS ORDERED: ACETAMINOPHEN 325MG TABLET PO PRN (23:00)
[2022-10-29] MEDS: INSULIN GLARGINE 100 UNITS/ML SUBCUT SCH (23:32)
[2022-10-29] MEDS: ACETAMINOPHEN 325MG TABLET PO PRN (23:33)
[2022-10-30] VITALS (76 sets, daily range): BP systolic 71–162; BP diastolic 36–87
[2022-10-30] MEDS: NOREPINEPHRINE 8 MG in DEXTROSE 5% WATER 250 ML IV PRN (02:25)
[2022-10-30] MEDS: INSULIN LISPRO 100 UNITS/ML SUBCUT SCH ×4 (05:16→21:42)
[2022-10-30] MEDS: BLOOD SUGAR DIAGNOSTIC STRIP TEST SCH ×5 (05:17→21:31)
[2022-10-30] MEDS: PIPERACILLIN/TAZOBACTAM 3.375G in DEXT 5% WATER 50ML IV SCH ×2 (05:17→13:54)
[2022-10-30] MEDS ORDERED: INSULIN LISPRO 100 UNITS/ML SUBCUT SCH (07:00)
[2022-10-30 10:09] LABS: BASOPHILS % 0.1 % (0.0-2.0); EOSINOPHILS % 0.2 % (0.0-5.0); HEMATOCRIT. 32.1 % (36.0-48.0); HEMOGLOBIN. 10.2 g/dL (12.0-16.0); LYMPHOCYTES % 7.8 % (20.0-50.0); MEAN CORPUSCULAR VOLUME 81.9 fL (81.0-99.0); MEAN PLATELET VOLUME 9.5 fl (7.4-10.4); MONOCYTES % 13.2 % (2.0-8.0); NEUTROPHILS % 78.7 % (40.0-76.0); PLATELET 138 x1000/uL (130-400); RED BLOOD CELL COUNT 3.92 mill/uL (4.2-5.4); RED CELL DISTRIBUTION WIDTH 14.1 % (11.6-14.6)
[2022-10-30] MEDS: ACETAMINOPHEN 325MG TABLET PO PRN (12:30)
[2022-10-30] MEDS: MEROPENEM-0.9% SODIUM CHLORIDE 100 ML IV SCH (18:10)
[2022-10-30] MEDS: INSULIN GLARGINE 100 UNITS/ML SUBCUT SCH (21:41)
[2022-10-31] VITALS (72 sets, daily range): BP systolic 80–147; BP diastolic 28–80
[2022-10-31 05:09] LABS: HEMOGLOBIN. 10.9 g/dL (12.0-16.0); MEAN CORPUSCULAR VOLUME 81.2 fL (81.0-99.0); MEAN PLATELET VOLUME 9.2 fl (7.4-10.4); PLATELET 146 x1000/uL (130-400); RED BLOOD CELL COUNT 4.19 mill/uL (4.2-5.4)
[2022-10-31] MEDS ORDERED: DILTIAZEM HCL 5MG/ML 5ML VIAL IV NR (06:45)
[2022-10-31] MEDS: BLOOD SUGAR DIAGNOSTIC STRIP TEST SCH ×4 (06:51→20:36)
[2022-10-31] MEDS: MEROPENEM-0.9% SODIUM CHLORIDE 100 ML IV SCH ×2 (06:58→17:23)
[2022-10-31] MEDS: INSULIN LISPRO 100 UNITS/ML SUBCUT SCH ×4 (06:58→20:37)
[2022-10-31 08:53] LABS: NUCLEATED RED BLOOD CELLS 1 /100 WBC; PLATELET ESTIMATE NORMAL
[2022-10-31] MEDS: POLYETHYLENE GLYCOL 3350 (17GM) 1 DOSE PACK PO SCH (09:26)
[2022-10-31] MEDS ORDERED: NA PHOS,M-B/NA PHOS,DI-BA ENEMA 118ML PR NR (10:30)
[2022-10-31 12:00] LABS: BG CARBOXYHEMOGLOBIN 2.8 % (0.5-1.5); BG HCO3 ACT 24.1 mmol/L (22.0-26.0); BG METHEMOGLOBIN 0.3 % (0.0-1.5); BG OXYGEN SATURATION 95.9 % (92.0-98.5); BG OXYHEMOGLOBIN 92.9 % (94.0-97.0); BG PCO2 37.3 mmHg (35.0-45.0); BG PH 7.429 (7.350-7.450); BG PO2 75.5 mmHg (75.0-100.0); BG SAMPLE SITE RIGHT BRACHIAL; BG TOTAL HEMOGLOBIN 11.6 g/dL (12.0-18.0); BG VENT MODE ROOM AIR
[2022-10-31] MEDS ORDERED: DILTIAZEM HCL 60MG TABLET PO SCH (12:15)
[2022-10-31] MEDS ORDERED: DIGOXIN 500MCG/2ML AMP IV PRN (12:15)
[2022-10-31] MEDS: ENOXAPARIN 80MG/0.8ML SYR SUBCUT SCH ×2 (13:10→23:31)
[2022-10-31] MEDS ORDERED: AMIODARONE HCL 50MG/ML 3ML VIAL IV ONE (14:45)
[2022-10-31] MEDS ORDERED: SODIUM CHLORIDE 0.9% 1000ML BAG (SEPSIS BOLUS) IV ONE (14:45)
[2022-10-31] MEDS ORDERED: AMIODARONE HCL 150 MG in DEXT 5% WATER 100 ML IV NR (16:00)
[2022-10-31] MEDS ORDERED: LACTULOSE 20G/30ML UDC PO PRN (21:00)
[2022-10-31] MEDS: DILTIAZEM HCL 30MG TABLET PO SCH (21:24)
[2022-10-31] MEDS: INSULIN GLARGINE 100 UNITS/ML SUBCUT SCH (21:26)
[2022-11-01] VITALS (41 sets, daily range): BP systolic 85–133; BP diastolic 40–75
[2022-11-01] MEDS: MEROPENEM-0.9% SODIUM CHLORIDE 100 ML IV SCH ×2 (05:37→18:21)
[2022-11-01] MEDS: BLOOD SUGAR DIAGNOSTIC STRIP TEST SCH ×4 (05:37→21:19)
[2022-11-01] MEDS: DILTIAZEM HCL 30MG TABLET PO SCH (05:37)
[2022-11-01] MEDS: INSULIN LISPRO 100 UNITS/ML SUBCUT SCH ×4 (05:38→21:18)
[2022-11-01 06:04] LABS: HEMATOCRIT. 31.8 % (36.0-48.0); HEMOGLOBIN. 10.2 g/dL (12.0-16.0); MEAN CORPUSCULAR HEMOGLOBIN 26.3 pg (28.0-32.0); MEAN CORPUSCULAR VOLUME 81.8 fL (81.0-99.0); MEAN PLATELET VOLUME 8.6 fl (7.4-10.4); PLATELET 164 x1000/uL (130-400); RED BLOOD CELL COUNT 3.89 mill/uL (4.2-5.4); RED CELL DISTRIBUTION WIDTH 14.3 % (11.6-14.6)
[2022-11-01 06:44] LABS: CHLORIDE 108 mEq/L (98-107)
[2022-11-01] MEDS: ENOXAPARIN 80MG/0.8ML SYR SUBCUT SCH ×2 (09:17→21:18)
[2022-11-01] MEDS: POLYETHYLENE GLYCOL 3350 (17GM) 1 DOSE PACK PO SCH (09:18)
[2022-11-01 10:25] LABS: ATYPICAL LYMPHOCYTES 1; PLATELET ESTIMATE NORMAL
[2022-11-01] MEDS: INSULIN GLARGINE 100 UNITS/ML SUBCUT SCH (21:20)
[2022-11-02 04:00] VITALS: BP 114/65
[2022-11-02] MEDS: MEROPENEM-0.9% SODIUM CHLORIDE 100 ML IV SCH (05:29)
[2022-11-02] MEDS: BLOOD SUGAR DIAGNOSTIC STRIP TEST SCH ×3 (06:10→21:50)
[2022-11-02 08:03] VITALS: BP 116/61
[2022-11-02] MEDS: INSULIN LISPRO 100 UNITS/ML SUBCUT SCH ×4 (08:10→21:52)
[2022-11-02] MEDS: POLYETHYLENE GLYCOL 3350 (17GM) 1 DOSE PACK PO SCH (08:41)
[2022-11-02] MEDS: ENOXAPARIN 80MG/0.8ML SYR SUBCUT SCH ×2 (08:42→21:50)
[2022-11-02] MEDS ORDERED: LIDOCAINE HCL 1% 30ML VIAL (10MG/ML) ONE (11:06)
[2022-11-02 11:50] VITALS: BP 122/66
[2022-11-02] MEDS: MEROPENEM-0.9% SODIUM CHLORIDE 50 ML IV SCH ×2 (14:41→21:50)
[2022-11-02 15:57] VITALS: BP 130/66
[2022-11-02 20:00] VITALS: BP 133/62
[2022-11-02] MEDS: INSULIN GLARGINE 100 UNITS/ML SUBCUT SCH (21:51)
[2022-11-03] VITALS: BP 136/66
[2022-11-03 04:00] VITALS: BP 148/68
[2022-11-03] MEDS: MEROPENEM-0.9% SODIUM CHLORIDE 50 ML IV SCH (05:40)
[2022-11-03] MEDS: BLOOD SUGAR DIAGNOSTIC STRIP TEST SCH ×2 (06:38→12:20)
[2022-11-03] MEDS: INSULIN LISPRO 100 UNITS/ML SUBCUT SCH ×2 (07:50→12:50)
[2022-11-03 08:00] VITALS: BP 138/65
[2022-11-03] MEDS: POLYETHYLENE GLYCOL 3350 (17GM) 1 DOSE PACK PO SCH (09:00)
[2022-11-03] MEDS: ENOXAPARIN 80MG/0.8ML SYR SUBCUT SCH (10:40)
[2022-11-03 12:00] VITALS: BP 129/68
[2022-11-03] MEDS ORDERED: INSU100I28 SQ (14:07)
[2022-11-03] MEDS ORDERED: POLY17PO3 PO (14:07)
[2022-11-03] MEDS ORDERED: APIX5TAB MT (14:12)
[2022-11-03 16:00] VITALS: BP 135/73
[2022-11-03] MEDS ORDERED: ENOXAPARIN 100MG/ML SYR SUBCUT SCH (21:00)
== END 2022-11-03 17:48 | disposition home health service (06) | DRG 871 ==
LOC: ER 13:28 → MICUSO 21:02 → EDBEDREQSVC 21:15 → EDBEDREQTM 21:15 → EDBEDREQ 21:15 → MICUSO 10-29 06:11 → 7WST 11-01 18:11 → 6EST 11-03 05:47
PROVIDERS: ADMIT Internal Medicine; ATTEND Internal Medicine
PROC: 02HV33Z Insertion of Infusion Device into Superior Vena Cava, Percutaneous Approach (ICD-10-PCS; principal; 2022-11-02)
PROC: B548ZZA Ultrasonography of Superior Vena Cava, Guidance (ICD-10-PCS; 2022-11-02)
DX: A41.51 Sepsis due to Escherichia coli [E. coli] (principal); E11.10 Type 2 diabetes mellitus with ketoacidosis without coma; R65.21 Severe sepsis with septic shock; N17.0 Acute kidney failure with tubular necrosis; E44.0 Moderate protein-calorie malnutrition; E87.1 Hypo-osmolality and hyponatremia; I50.30 Unspecified diastolic (congestive) heart failure; N10 Acute pyelonephritis; I50.32 Chronic diastolic (congestive) heart failure; I48.4 Atypical atrial flutter; E11.40 Type 2 diabetes mellitus with diabetic neuropathy, unspecified; E86.0 Dehydration; E86.1 Hypovolemia; E87.5 Hyperkalemia; I11.0 Hypertensive heart disease with heart failure; E11.65 Type 2 diabetes mellitus with hyperglycemia; E88.09 Other disorders of plasma-protein metabolism, not elsewhere classified
CPT/HCPCS: 36415; 36573; 36600; 71045; 72192; 74177; 80048; 80053; 81003; 82010; 82375; 82805; 82962; 83036; 83735; 83880; 83930; 84100; 84145; 84484; 85025; 86850; 86900; 87077; 87186; 93005; 93306; 97162; 97166; 97535; 99291; C1725; J0282; J0696; J1650; J1815; J2185; J2270; J2405; J2543; J3490; J7030; J7060; P9047; Q9967; A4315

== ENCOUNTER 2022-11-13 12:08 | Emergency (ER) | payer BC, OTHER ==
[~2022-11-13] VITALS: Ht 167.6 cm; Wt 84.0 kg
[~2022-11-13 12:08] MED LIST changes: -AMLO5TAB4 MT; +APIX5TAB MT; -COR3 MT; -LISI-186 PO; -LISI10TA26 MT; +POLY17PO3 PO
[2022-11-13 12:18] VITALS: BP 139/65
== END 2022-11-13 15:06 | disposition home or self-care (01) ==
LOC: ER 12:08
DX: Z45.2 Encounter for adjustment and management of vascular access device (principal); Z79.899 Other long term (current) drug therapy; Z98.890 Other specified postprocedural states
CPT/HCPCS: 99281

== ENCOUNTER 2023-11-26 12:04 | Inpatient (IN) | payer BC, OTHER ==
[~2023-11-26] VITALS: Ht 167.6 cm; Wt 93.0 kg
[2023-11-26 12:33] LABS: BASOPHILS % 0.5 % (0.0-2.0); EOSINOPHILS % 2.1 % (0.0-5.0); HEMATOCRIT. 32.8 % (36.0-48.0); HEMOGLOBIN. 10.3 g/dL (12.0-16.0); LYMPHOCYTES % 25.8 % (20.0-50.0); MEAN CORPUSCULAR HEMOGLOBIN 26.5 pg (28.0-32.0); MEAN CORPUSCULAR HGB CONC 31.3 g/dL (31.0-37.0); MEAN CORPUSCULAR VOLUME 84.5 fL (81.0-99.0); MEAN PLATELET VOLUME 9.2 fl (7.4-10.4); MONOCYTES % 9.5 % (2.0-8.0); NEUTROPHILS % 62.1 % (40.0-76.0); PLATELET 175 x1000/uL (130-400); RED BLOOD CELL COUNT 3.88 mill/uL (4.2-5.4); RED CELL DISTRIBUTION WIDTH 13.3 % (11.6-14.6)
[2023-11-26 12:39] LABS: CHLORIDE 112 mEq/L (98-107); POTASSIUM 3.9 mEq/L (3.5-5.1); SODIUM 144 mEq/L (136-145)
[2023-11-26 12:40] LABS: CARBON DIOXIDE 26 mEq/L (21-32)
[2023-11-26 12:45] LABS: CREATININE 0.7 mg/dL (0.6-1.0); GLUCOSE 171 mg/dL (70-105)
[2023-11-26 12:46] LABS: UREA NITROGEN BLOOD 23 mg/dL (9-23)
[2023-11-26 12:48] LABS: TROPONIN I HIGH SENSITIVITY 9 ng/L (3.0-34)
[2023-11-26 15:31] LABS: THYROID STIMULATING HORMONE 1.97 uIU/mL (0.55-4.78)
[2023-11-26 16:00] LABS: CLARITY URINE CLEAR (CLEAR); COLOR URINE YELLOW (YELLOW); GLUCOSE URINE NEGATIVE (NEGATIVE); KETONES URINE NEGATIVE (NEGATIVE); LEUKOCYTE ESTERASE URINE 2+ (NEGATIVE); NITRITE URINE POSITIVE (NEGATIVE); OCCULT BLOOD URINE 2+ (NEGATIVE); PROTEIN URINE 3+ (NEGATIVE); SPECIFIC GRAVITY URINE 1.016 (1.005-1.030); UROBILINOGEN URINE 0.2 E.U./dL (0.2-1.0)
[2023-11-26 17:01] LABS: SQUAMOUS EPITHELIAL CELL URINE 1+ /lpf (RARE/1+)
[2023-11-26 17:02] LABS: BACTERIA URINE 3+
[2023-11-26] MEDS ORDERED: CEFTRIAXONE 500 MG in DEXTROSE 5% WATER 50 ML IV SCH (17:30)
[2023-11-26] MEDS: GABAPENTIN 400MG CAPSULE PO ONE (17:54)
[2023-11-26] MEDS: CEFTRIAXONE 1GM/50ML 50ML IV NR (17:55)
[2023-11-26] MEDS: MORPHINE SULFATE 4 MG/ML INJ (FOR IV/IM USE) IV ONE (17:55)
[2023-11-26 20:00] VITALS: BP 180/99; PULSE 84; RESP 16; TEMP 98.2
[2023-11-26 20:25] VITALS: BP 180/99; PULSE 86; RESP 17; TEMP 98.2
[2023-11-26] MEDS ORDERED: LOSA100T33 PO (20:44)
[2023-11-26] MEDS ORDERED: AMLO5TAB88 PO (20:44)
[2023-11-26] MEDS: LOSARTAN 100 MG TABLET PO SCH (22:58)
[2023-11-27] VITALS: BP 158/84; PULSE 73; RESP 13; TEMP 98
[2023-11-27] MEDS ORDERED: ACETAMINOPHEN 325MG TABLET PO PRN
[2023-11-27] MEDS: FUROSEMIDE 40MG/4ML VIAL IVP SCH (00:10)
[2023-11-27 02:50] LABS: IRON 59 ug/dL (50-170)
[2023-11-27 02:53] LABS: TOTAL IRON BINDING CAPACITY 206 ug/dl (250-425)
[2023-11-27 02:56] LABS: FOLIC ACID (FOLATE) SERUM 14.62 ng/mL (>5.38)
[2023-11-27] MEDS ORDERED: DOCUSATE SODIUM 250MG CAPSULE PO PRN (03:00)
[2023-11-27] MEDS: ACETAMINOPHEN 325MG TABLET PO PRN (03:35)
[2023-11-27 04:00] VITALS: BP 166/96; PULSE 76; RESP 9; TEMP 97.7
[2023-11-27] MEDS: AMLODIPINE 5MG TABLET PO SCH (06:10)
[2023-11-27] MEDS: BLOOD SUGAR DIAGNOSTIC STRIP TEST SCH (06:10)
[2023-11-27] MEDS: INSULIN LISPRO 100 UNITS/ML SUBCUT SCH (06:12)
[2023-11-27] MEDS ORDERED: INSULIN LISPRO 100 UNITS/ML SUBCUT SCH (07:20)
[2023-11-27 07:23] LABS: BASOPHILS % 0.8 % (0.0-2.0); EOSINOPHILS % 3.3 % (0.0-5.0); HEMATOCRIT. 33.2 % (36.0-48.0); HEMOGLOBIN. 10.4 g/dL (12.0-16.0); LYMPHOCYTES % 27.1 % (20.0-50.0); MEAN CORPUSCULAR HEMOGLOBIN 26.7 pg (28.0-32.0); MEAN CORPUSCULAR HGB CONC 31.2 g/dL (31.0-37.0); MEAN CORPUSCULAR VOLUME 85.6 fL (81.0-99.0); MEAN PLATELET VOLUME 9.8 fl (7.4-10.4); MONOCYTES % 13.3 % (2.0-8.0); NEUTROPHILS % 55.5 % (40.0-76.0); PLATELET 171 x1000/uL (130-400); RED BLOOD CELL COUNT 3.88 mill/uL (4.2-5.4); RED CELL DISTRIBUTION WIDTH 13.5 % (11.6-14.6); WHITE BLOOD COUNT 4.4 x1000/uL (4.5-11.0)
[2023-11-27 07:34] LABS: CHLORIDE 109 mEq/L (98-107); SODIUM 144 mEq/L (136-145)
[2023-11-27 07:36] LABS: CALCIUM 8.7 mg/dL (8.7-10.4)
[2023-11-27 07:40] LABS: CREATININE 0.5 mg/dL (0.6-1.0); GLUCOSE 95 mg/dL (70-105)
[2023-11-27 07:41] LABS: UREA NITROGEN BLOOD 13 mg/dL (9-23)
[2023-11-27 07:57] LABS: CARBON DIOXIDE 26 mEq/L (21-32)
[2023-11-27 08:00] VITALS: BP 165/102; PULSE 86; RESP 27; TEMP 98.4
[2023-11-27] MEDS: ENOXAPARIN 30MG/0.3ML SYR SUBCUT SCH (09:20)
[2023-11-27 09:58] LABS: ALANINE AMINOTRANSFERASE 24 IU/L (10-49); ALBUMIN 3.2 g/dL (3.2-4.8); ASPARTATE AMINOTRANSFERASE 27 IU/L (<34); BILIRUBIN DIRECT 0.2 mg/dL (<=3.0); BILIRUBIN TOTAL 0.7 mg/dL (0.1-1.0); PROTEIN TOTAL 5.4 g/dL (6.0-8.3)
[2023-11-27] MEDS ORDERED: IBUPROFEN 400MG TABLET PO PRN (11:45)
[2023-11-27 12:00] VITALS: BP 179/93; PULSE 88; RESP 16; TEMP 98.7
[2023-11-27] MEDS: KETOROLAC 15MG/ML VIAL IV PRN (12:24)
[2023-11-27] MEDS: HYDRALAZINE 20MG/ML VIAL IV PRN (12:25)
[2023-11-27 13:11] LABS: HEPATITIS B SURFACE ANTIGEN NEGATIVE (Negative)
[2023-11-27 13:31] LABS: HEPATITIS A AB IGM NEGATIVE (Negative)
[2023-11-27 13:32] LABS: HEPATITIS B CORE AB IGM NEGATIVE (Negative)
[2023-11-27 13:33] LABS: HEPATITIS C AB NON REACTIVE (Neg) (Negative)
[2023-11-27 16:00] VITALS: BP 168/88; PULSE 64; RESP 13; TEMP 98.5
[2023-11-27 16:09] LABS: ALANINE AMINOTRANSFERASE 24 IU/L (10-49); ALBUMIN 3.3 g/dL (3.2-4.8); ASPARTATE AMINOTRANSFERASE 39 IU/L (<34); BILIRUBIN DIRECT 0.2 mg/dL (<=3.0); BILIRUBIN TOTAL 0.6 mg/dL (0.1-1.0); PROTEIN TOTAL 5.7 g/dL (6.0-8.3)
[2023-11-27] MEDS: CEFTRIAXONE 1GM/50ML 50 ML IV SCH (18:22)
[2023-11-27 20:00] VITALS: BP 157/82; PULSE 78; RESP 15; TEMP 98.2
[2023-11-27] MEDS: ATORVASTATIN CALCIUM 40MG TABLET PO SCH (22:12)
[2023-11-27] MEDS: ZOLPIDEM TARTRATE 5MG TABLET PO PRN (22:14)
[2023-11-27] MEDS: INSULIN GLARGINE 100 UNITS/ML SUBCUT SCH (22:21)
[2023-11-28] VITALS: BP 131/76; PULSE 70; RESP 14; TEMP 98
[2023-11-28 04:00] VITALS: BP 122/66; PULSE 74; RESP 16; TEMP 98.1
[2023-11-28] MEDS: DEXTROSE 50% WATER 50ML SYRINGE IV PRN (04:43)
[2023-11-28 06:37] LABS: HEMATOCRIT 34.7 % (36.0-48.0); HEMOGLOBIN 10.9 g/dL (12.0-16.0); MEAN CORPUSCULAR HEMOGLOBIN 26.8 pg (28.0-32.0); MEAN CORPUSCULAR HGB CONC 31.5 g/dL (31.0-37.0); MEAN CORPUSCULAR VOLUME 85.2 fL (81.0-99.0); PLATELET 169 x1000/uL (130-400); RED BLOOD CELL COUNT 4.07 mill/uL (4.2-5.4); RED CELL DISTRIBUTION WIDTH 13.4 % (11.6-14.6); WHITE BLOOD COUNT 3.3 x1000/uL (4.5-11.0)
[2023-11-28 06:49] LABS: CALCIUM 8.7 mg/dL (8.7-10.4); CARBON DIOXIDE 27 mEq/L (21-32); CHLORIDE 108 mEq/L (98-107); POTASSIUM 3.5 mEq/L (3.5-5.1); SODIUM 144 mEq/L (136-145)
[2023-11-28 06:54] LABS: CREATININE 0.8 mg/dL (0.6-1.0); T4 FREE 1.34 ng/dL (0.89-1.76); THYROID STIMULATING HORMONE 3.02 uIU/mL (0.55-4.78)
[2023-11-28 06:55] LABS: GLUCOSE 102 mg/dL (70-105); UREA NITROGEN BLOOD 22 mg/dL (9-23)
[2023-11-28 08:00] VITALS: BP 148/99; PULSE 89; RESP 19; TEMP 98.1
[2023-11-28] MEDS ORDERED: NITR-87 MT (09:47)
[2023-11-28 10:57] VITALS: BP 144/89; PULSE 87; TEMP 98; O2SAT 98
[2023-11-28 12:00] VITALS: BP 161/86; PULSE 90; RESP 12; TEMP 98.7
== END 2023-11-28 13:30 | disposition home or self-care (01) | DRG 699 ==
LOC: ER 12:24 → EDBEDREQ 15:28 → EDBEDREQTM 17:45 → EDBEDREQ 17:45 → 3WST 18:42
PROVIDERS: ADMIT Internal Medicine; ATTEND Internal Medicine
DX: E11.21 Type 2 diabetes mellitus with diabetic nephropathy (principal); I25.3 Aneurysm of heart; N39.0 Urinary tract infection, site not specified; I69.351 Hemiplegia and hemiparesis following cerebral infarction affecting right dominant side; I42.9 Cardiomyopathy, unspecified; I11.0 Hypertensive heart disease with heart failure; D25.9 Leiomyoma of uterus, unspecified; E11.40 Type 2 diabetes mellitus with diabetic neuropathy, unspecified; E11.65 Type 2 diabetes mellitus with hyperglycemia; I27.20 Pulmonary hypertension, unspecified; R19.00 Intra-abdominal and pelvic swelling, mass and lump, unspecified site; K80.20 Calculus of gallbladder without cholecystitis without obstruction; I50.9 Heart failure, unspecified; K57.30 Diverticulosis of large intestine without perforation or abscess without bleeding; E66.9 Obesity, unspecified; I08.1 Rheumatic disorders of both mitral and tricuspid valves; Z79.01 Long term (current) use of anticoagulants; Z79.4 Long term (current) use of insulin; Z79.84 Long term (current) use of oral hypoglycemic drugs; Z79.899 Other long term (current) drug therapy; Z68.33 Body mass index [BMI] 33.0-33.9, adult
CPT/HCPCS: 36415; 71045; 74176; 76770; 80048; 80061; 80076; 81003; 82550; 82746; 82962; 83036; 83540; 83550; 83605; 83880; 84145; 84439; 84443; 84484; 85025; 85027; 86705; 86709; 87340; 93005; 93306; 93970; 99285; J0360; J0696; J1650; J1815; J1885; J1940; J2270

== ENCOUNTER 2024-03-30 02:50 | Inpatient (IN) | payer BC, OTHER ==
[~2024-03-30] VITALS: Ht 167.6 cm; Wt 104.3 kg
[~2024-03-30 02:50] MED LIST changes: +AMLO5TAB88 PO; -INSLIS SUBCUT; -INSU100I28 SQ; +LOSA100T33 PO; +NITR-87 MT
[2024-03-30 04:13] LABS: BASOPHILS % 0.4 % (0.0-2.0); EOSINOPHILS % 1.1 % (0.0-5.0); HEMATOCRIT. 35.7 % (36.0-48.0); HEMOGLOBIN. 11.2 g/dL (12.0-16.0); LYMPHOCYTES % 18.8 % (20.0-50.0); MEAN CORPUSCULAR HEMOGLOBIN 26.8 pg (28.0-32.0); MEAN CORPUSCULAR HGB CONC 31.3 g/dL (31.0-37.0); MEAN CORPUSCULAR VOLUME 85.6 fL (81.0-99.0); MEAN PLATELET VOLUME 9.9 fl (7.4-10.4); MONOCYTES % 8.7 % (2.0-8.0); PLATELET 157 x1000/uL (130-400); RED BLOOD CELL COUNT 4.17 mill/uL (4.2-5.4); RED CELL DISTRIBUTION WIDTH 12.9 % (11.6-14.6); WHITE BLOOD COUNT 5.6 x1000/uL (4.5-11.0)
[2024-03-30 04:23] LABS: INR 0.9
[2024-03-30 04:30] LABS: CHLORIDE 106 mEq/L (98-107); POTASSIUM 4.3 mEq/L (3.5-5.1); SODIUM 140 mEq/L (136-145)
[2024-03-30 04:31] LABS: CARBON DIOXIDE 26 mEq/L (21-32)
[2024-03-30 04:32] LABS: CALCIUM 9.8 mg/dL (8.7-10.4)
[2024-03-30 04:36] LABS: CREATININE 1.1 mg/dL (0.6-1.0); TROPONIN I HIGH SENSITIVITY 6 ng/L (3.0-34)
[2024-03-30 04:37] LABS: UREA NITROGEN BLOOD 28 mg/dL (9-23)
[2024-03-30 04:38] LABS: ALANINE AMINOTRANSFERASE 17 IU/L (10-49); ALBUMIN 4.3 g/dL (3.2-4.8); ASPARTATE AMINOTRANSFERASE 14 IU/L (<34)
[2024-03-30 04:39] LABS: BILIRUBIN TOTAL 0.3 mg/dL (0.1-1.0)
[2024-03-30 06:18] LABS: BILIRUBIN DIRECT < 0.1 mg/dL (<=3.0); ETHANOL BLOOD < 10 mg/dL (<10)
[2024-03-30 06:19] LABS: GLUCOSE 453 mg/dL (70-105)
[2024-03-30] MEDS ORDERED: INSULIN REGULAR (HUMULIN R) 1000UNITS/10ML VIAL IV NR (06:21)
[2024-03-30] MEDS: SODIUM CHLORIDE 0.9% 1,000 ML IV ONE (07:37)
[2024-03-30] MEDS: INSULIN REGULAR (HUMULIN R) 1000UNITS/10ML VIAL SUBCUT SCH (07:45)
[2024-03-30] MEDS: INSULIN REGULAR (HUMULIN R) 1000UNITS/10ML VIAL SUBCUT ONE (07:46)
[2024-03-30] MEDS ORDERED: CLONIDINE 0.1MG TABLET PO NR (09:00)
[2024-03-30 09:30] VITALS: BP 137/77; PULSE 72; RESP 18; TEMP 36.50292; TEMP 36.5292; O2SAT 100
[2024-03-30] MEDS ORDERED: ACETAMINOPHEN 325MG TABLET PO PRN (09:30)
[2024-03-30] MEDS ORDERED: CLONIDINE 0.1MG TABLET PO PRN (09:30)
[2024-03-30] MEDS ORDERED: GUAIFENESIN 200MG/10ML SUGAR FREE UDC PO PRN (09:30)
[2024-03-30] MEDS ORDERED: ONDANSETRON HCL 4MG/2ML INJ IV PRN (09:30)
[2024-03-30] MEDS ORDERED: IPRATROPIUM/ALBUTEROL 0.5-3(2.5)MG/3ML NEB HHN PRN (09:30)
[2024-03-30] MEDS ORDERED: DOCUSATE SODIUM 100MG CAPSULE PO PRN (09:30)
[2024-03-30] MEDS ORDERED: MAGNESIUM/ALUMINUM HYDROXIDE/SIMETHICONE 30ML UDC PO PRN (09:30)
[2024-03-30] MEDS ORDERED: PRED5DRO22 RIGHTEYE (10:31)
[2024-03-30] MEDS ORDERED: BRIM15DR8 EACHEYE (10:31)
[2024-03-30] MEDS ORDERED: MOXI3DRO12 RIGHTEYE (10:31)
[2024-03-30] MEDS ORDERED: KETO5DRO38 RIGHTEYE (10:31)
[2024-03-30 12:00] VITALS: BP 168/85; PULSE 71; RESP 18; TEMP 36.3918; O2SAT 97
[2024-03-30 12:20] LABS: CLARITY URINE CLEAR (CLEAR); COLOR URINE YELLOW (YELLOW); GLUCOSE URINE 2+ (NEGATIVE); KETONES URINE NEGATIVE (NEGATIVE); LEUKOCYTE ESTERASE URINE NEGATIVE (NEGATIVE); NITRITE URINE NEGATIVE (NEGATIVE); OCCULT BLOOD URINE NEGATIVE (NEGATIVE); PH URINE 8.5 (4.5-8.0); PROTEIN URINE 1+ (NEGATIVE); SPECIFIC GRAVITY URINE 1.017 (1.005-1.030); UROBILINOGEN URINE 0.2 E.U./dL (0.2-1.0)
[2024-03-30] MEDS ORDERED: BRIMONIDINE 0.2% OPHTH DROPS 5ML EACHEYE SCH (12:45)
[2024-03-30 12:48] LABS: BACTERIA URINE 1+; RBC URINE 0-2 /hpf (0-2); SQUAMOUS EPITHELIAL CELL URINE 1+ /lpf (RARE/1+); YEAST URINE NONE SEEN
[2024-03-30 12:59] LABS: *AMPHETAMINES SCREEN URINE NEGATIVE (NEGATIVE)
[2024-03-30] MEDS ORDERED: KETOROLAC TROM 0.5% 5ML BOTTLE RIGHTEYE SCH (13:00)
[2024-03-30] MEDS ORDERED: MEDICATION NOT ON FORMULARY EA (Moxifloxacin HCl (Moxifloxacin) 1 DROP) RIGHTEYE SCH (13:00)
[2024-03-30 13:01] LABS: *BARBITURATES SCREEN URINE NEGATIVE (NEGATIVE); *BENZODIAZEPINES SCREEN URINE NEGATIVE (NEGATIVE); *COCAINE SCREEN URINE NEGATIVE (NEGATIVE); CANNABINOID URINE SCREEN NEGATIVE (NEGATIVE); ECSTASY MDMA SCREEN URINE NEGATIVE (NEGATIVE); METHADONE URINE SCREEN NEGATIVE (NEGATIVE); OPIATES URINE SCREEN NEGATIVE (NEGATIVE); PHENCYCLIDINE URINE SCREEN NEGATIVE (NEGATIVE)
[2024-03-30] MEDS ORDERED: DEXTROSE 50% WATER 50ML SYRINGE IV PRN (13:15)
[2024-03-30] MEDS: POLYETHYLENE GLYCOL 3350 (17GM) 1 DOSE PACK PO SCH (13:25)
[2024-03-30] MEDS: DOCUSATE SODIUM 100MG CAPSULE PO SCH (13:25)
[2024-03-30] MEDS: LOSARTAN 100 MG TABLET PO SCH (13:25)
[2024-03-30] MEDS: FUROSEMIDE 40MG TABLET PO SCH (13:25)
[2024-03-30] MEDS: FERROUS SULFATE 325MG TABLET PO SCH (13:26)
[2024-03-30] MEDS: ACETAMINOPHEN 325MG TABLET PO PRN (13:32)
[2024-03-30 16:00] VITALS: BP 185/79; PULSE 61; RESP 18; TEMP 36.72516; O2SAT 98
[2024-03-30] MEDS: BLOOD SUGAR DIAGNOSTIC STRIP TEST SCH (16:52)
[2024-03-30] MEDS: EYE OP SCH ×2 (16:55→16:56)
[2024-03-30] MEDS: KETOROLAC 0.5% OP SCH (16:55)
[2024-03-30] MEDS: PREDNISOLONE AC 1% OP SCH (16:55)
[2024-03-30] MEDS: MOXIFLOXACIN 0.5% OP SCH (16:56)
[2024-03-30 17:21] VITALS: BP 163/100; PULSE 77; RESP 18; TEMP 36.44736; O2SAT 98
[2024-03-30 20:00] VITALS: BP 155/87; PULSE 68; RESP 19; TEMP 36.44736; O2SAT 98
[2024-03-30] MEDS: INSULIN LISPRO 100 UNITS/ML SUBCUT SCH (21:00)
[2024-03-30] MEDS ORDERED: ENOXAPARIN 30MG/0.3ML SYR SUBCUT SCH (21:00)
[2024-03-30] MEDS: IBUPROFEN 600MG TABLET PO NR (21:22)
[2024-03-30] MEDS: BRIMONIDINE 0.2% OP SCH (21:24)
[2024-03-31] VITALS: BP 143/70; PULSE 73; RESP 18; TEMP 36.50292; O2SAT 100
[2024-03-31 04:00] VITALS: BP 136/71; PULSE 76; RESP 19; TEMP 36.55848; O2SAT 100
[2024-03-31 06:05] LABS: CARBON DIOXIDE 24 mEq/L (21-32); CHLORIDE 110 mEq/L (98-107); POTASSIUM 4.1 mEq/L (3.5-5.1); SODIUM 141 mEq/L (136-145)
[2024-03-31 06:06] LABS: CALCIUM 9.4 mg/dL (8.7-10.4)
[2024-03-31 06:11] LABS: CREATININE 1.1 mg/dL (0.6-1.0); GLUCOSE 165 mg/dL (70-105); TRIGLYCERIDE 67 mg/dL (0-150); UREA NITROGEN BLOOD 28 mg/dL (9-23)
[2024-03-31 06:12] LABS: LDL CHOLESTEROL 102 mg/dL (5-100)
[2024-03-31 06:13] LABS: CHOLESTEROL 205 mg/dL (<200); HDL CHOLESTEROL 81 mg/dL (>65)
[2024-03-31 06:14] LABS: THYROID STIMULATING HORMONE 2.64 uIU/mL (0.55-4.78)
[2024-03-31] MEDS: PANTOPRAZOLE 40MG DR TABLET PO SCH (06:23)
[2024-03-31 06:34] LABS: BASOPHILS % 0.4 % (0.0-2.0); EOSINOPHILS % 1.9 % (0.0-5.0); HEMOGLOBIN. 11.3 g/dL (12.0-16.0); LYMPHOCYTES % 35.3 % (20.0-50.0); MEAN CORPUSCULAR HEMOGLOBIN 26.8 pg (28.0-32.0); MEAN CORPUSCULAR HGB CONC 31.3 g/dL (31.0-37.0); MEAN CORPUSCULAR VOLUME 85.5 fL (81.0-99.0); MEAN PLATELET VOLUME 10.1 fl (7.4-10.4); MONOCYTES % 9.1 % (2.0-8.0); NEUTROPHILS % 53.3 % (40.0-76.0); PLATELET 167 x1000/uL (130-400); RED BLOOD CELL COUNT 4.21 mill/uL (4.2-5.4); RED CELL DISTRIBUTION WIDTH 13.2 % (11.6-14.6); WHITE BLOOD COUNT 4.7 x1000/uL (4.5-11.0)
[2024-03-31 08:00] VITALS: BP 167/84; PULSE 75; RESP 18; TEMP 36.9474; O2SAT 97
[2024-03-31] MEDS: AMLODIPINE 10MG TABLET PO SCH (08:45)
[2024-03-31] MEDS: INSULIN GLARGINE 100 UNITS/ML SUBCUT SCH (10:00)
[2024-03-31 12:00] VITALS: BP 134/76; PULSE 82; RESP 18; TEMP 36.44736; O2SAT 98
[2024-03-31] MEDS: ASPIRIN 81MG TABLET PO SCH (12:39)
[2024-03-31] MEDS: FERROUS SULFATE 325MG TABLET PO SCH (12:39)
[2024-03-31 16:00] VITALS: BP 114/67; PULSE 81; RESP 18; TEMP 36.44736; O2SAT 99
[2024-03-31 16:12] LABS: CREATINE KINASE MB FRACTION 0.6 ng/mL (0.5-3.6)
[2024-03-31 20:00] VITALS: BP 140/77; PULSE 79; RESP 17; TEMP 36.33624; O2SAT 98
[2024-03-31 23:31] LABS: CREATINE KINASE MB FRACTION < 0.5 ng/mL (0.5-3.6); TROPONIN I HIGH SENSITIVITY 5 ng/L (3.0-34)
[2024-03-31 23:32] LABS: CREATINE KINASE 84 IU/L (34-145)
[2024-04-01] VITALS: BP 100/61; PULSE 76; RESP 18; TEMP 35.94732; O2SAT 99
[2024-04-01 04:00] VITALS: BP 122/71; PULSE 77; RESP 18; TEMP 36.33624; O2SAT 100
[2024-04-01 08:00] VITALS: BP 140/64; PULSE 83; RESP 18; TEMP 36.9474; O2SAT 100
[2024-04-01 08:05] LABS: CREATINE KINASE MB FRACTION 0.5 ng/mL (0.5-3.6)
[2024-04-01 12:00] VITALS: BP 143/76; PULSE 83; RESP 18; TEMP 37.11408; O2SAT 99
[2024-04-01] MEDS: SODIUM CHLORIDE 0.9% 1,000 ML IV SCH (13:08)
[2024-04-01 16:00] VITALS: BP 132/71; PULSE 80; RESP 18; TEMP 36.6696; O2SAT 100
[2024-04-01 20:00] VITALS: BP 144/72; PULSE 89; RESP 19; TEMP 35.89176; O2SAT 98
[2024-04-01] MEDS: LACTULOSE 20G/30ML UDC PO SCH (21:09)
[2024-04-02] VITALS: BP 107/58; PULSE 74; RESP 19; TEMP 36.22512; O2SAT 99
[2024-04-02 04:00] VITALS: BP 123/58; PULSE 78; RESP 18; TEMP 36.55848; O2SAT 98
[2024-04-02 08:00] VITALS: BP 134/66; PULSE 84; RESP 18; TEMP 36.22512; O2SAT 98
[2024-04-02 12:00] VITALS: BP 101/43; PULSE 84; RESP 18; TEMP 36.50292; O2SAT 94
[2024-04-02] MEDS: CLOPIDOGREL 75MG TABLET PO SCH (13:21)
[2024-04-02 16:00] VITALS: BP 137/74; PULSE 82; RESP 18; TEMP 36.72516; O2SAT 97
[2024-04-02 20:00] VITALS: BP 152/74; PULSE 87; RESP 20; TEMP 36.78072; O2SAT 97
[2024-04-02] MEDS: ATORVASTATIN CALCIUM 40MG TABLET PO SCH (20:38)
[2024-04-03] VITALS: BP 127/71; PULSE 72; RESP 20; TEMP 36.22512; O2SAT 98
[2024-04-03 04:00] VITALS: BP 137/77; PULSE 91; RESP 18; TEMP 36.89184; O2SAT 98
[2024-04-03 08:00] VITALS: BP 149/71; PULSE 87; RESP 18; TEMP 36.50292; O2SAT 99
[2024-04-03] MEDS: FAMOTIDINE 20MG TABLET PO SCH (08:47)
[2024-04-03 12:00] VITALS: BP 133/82; PULSE 77; RESP 18; TEMP 35.94732; O2SAT 100
[2024-04-03] MEDS: AMLODIPINE 10MG TABLET PO SCH (12:47)
[2024-04-03 16:00] VITALS: BP 124/69; PULSE 76; RESP 18; TEMP 35.94732; O2SAT 100
[2024-04-03 19:50] VITALS: BP 128/72; PULSE 84; RESP 20; TEMP 36.114; O2SAT 98
[2024-04-03] MEDS: INSULIN GLARGINE 100 UNITS/ML SUBCUT SCH (21:41)
[2024-04-04 00:01] VITALS: BP 150/73; PULSE 75; RESP 20; TEMP 36.55848; O2SAT 98
[2024-04-04 04:00] VITALS: BP 155/83; PULSE 83; RESP 18; TEMP 36.55848; O2SAT 97
[2024-04-04 08:00] VITALS: BP 150/81; PULSE 92; RESP 18; TEMP 36.28068; O2SAT 99
[2024-04-04 12:00] VITALS: BP 148/67; PULSE 79; RESP 18; TEMP 36.50292; O2SAT 97
[2024-04-04 16:00] VITALS: BP 148/73; PULSE 79; RESP 20; TEMP 36.50292; O2SAT 98
[2024-04-04 20:00] VITALS: BP 140/72; PULSE 82; RESP 18; TEMP 35.89176; O2SAT 98
[2024-04-05] VITALS: BP_SYST 100; BP_SYST 133; BP_DIAS 62; BP_DIAS 69; PULSE 75; PULSE 97; RESP 18; RESP 20; TEMP 36.50292; TEMP 36.72516; O2SAT 97; O2SAT 98
[2024-04-05 04:00] VITALS: BP 156/80; PULSE 80; RESP 18; TEMP 36.50292; O2SAT 98
[2024-04-05] MEDS ORDERED: ASPI-1160 PO (07:13)
[2024-04-05] MEDS ORDERED: CLOP-31 PO (07:13)
[2024-04-05] MEDS ORDERED: AMLO10TA80 PO (07:13)
[2024-04-05] MEDS ORDERED: LIP40 PO (07:13)
[2024-04-05 08:00] VITALS: BP 137/75; PULSE 87; RESP 18; TEMP 36.78072; O2SAT 98
[2024-04-05 10:33] VITALS: BP 137/75; PULSE 85; TEMP 98.2; O2SAT 98
[2024-04-05 12:00] VITALS: BP_SYST 138; BP_SYST 149; BP_DIAS 71; BP_DIAS 74; PULSE 77; PULSE 88; RESP 18; TEMP 36.61404; TEMP 36.72516; O2SAT 97; O2SAT 98
== END 2024-04-05 18:53 | DRG 64 ==
LOC: ER 02:50 → 8WST 04:58 → EDBEDREQTM 05:03 → EDBEDREQ 05:03
PROVIDERS: ADMIT Internal Medicine; ATTEND Internal Medicine
DX: I63.81 Other cerebral infarction due to occlusion or stenosis of small artery (principal); G93.41 Metabolic encephalopathy; I50.22 Chronic systolic (congestive) heart failure; E11.42 Type 2 diabetes mellitus with diabetic polyneuropathy; D64.9 Anemia, unspecified; E11.65 Type 2 diabetes mellitus with hyperglycemia; I11.0 Hypertensive heart disease with heart failure; R29.810 Facial weakness; Z79.4 Long term (current) use of insulin; Z79.84 Long term (current) use of oral hypoglycemic drugs; Z91.013 Allergy to seafood; Z79.899 Other long term (current) drug therapy
CPT/HCPCS: 36415; 70551; 71045; 80048; 80061; 80076; 80305; 80320; 81003; 82550; 82553; 82962; 83036; 83880; 83930; 84443; 84484; 85025; 85379; 93005; 93306; 93880; 93970; 97110; 97112; 97116; 97162; 97166; 97530; 99285; C1893; J1815; J7030; G0480

== ENCOUNTER 2024-08-11 12:06 | Inpatient (IN) | payer BC, OTHER ==
[~2024-08-11] VITALS: Ht 165.1 cm; Wt 150.0 kg
[~2024-08-11 12:06] MED LIST changes: +AMLO10TA80 PO; -AMLO5TAB88 PO; +ASPI-1160 PO; +BRIM15DR8 EACHEYE; +CLOP-31 PO; +LIP40 PO; -NITR-87 MT; +PRED5DRO22 RIGHTEYE; -SIMV-43 PO
[2024-08-11] MEDS: ETOMIDATE 2MG/ML 10ML VIAL IV ONE (12:09)
[2024-08-11] MEDS: ROCURONIUM BROMIDE 10MG/ML VIAL 5ML IV ONE (12:09)
[2024-08-11 12:10] VITALS: PULSE 80; RESP 13; O2SAT 99
[2024-08-11] MEDS: PROPOFOL 10MG/ML 100ML 100 ML IV ONE (12:30)
[2024-08-11] MEDS: NOREPINEPHRINE 8MG/250ML PMX 250 ML IV ONE ×3 (12:30→15:57)
[2024-08-11] MEDS: PIPERACILLIN/TAZO 3.375G/50ML 50 ML IV ONE (12:30)
[2024-08-11] MEDS ORDERED: SODIUM CHLORIDE 0.9% (SEPSIS BOLUS) IV ONE (12:30)
[2024-08-11] MEDS: SODIUM CHLORIDE 0.9% 1,000 ML IV ONE ×3 (12:45→12:46)
[2024-08-11 12:54] LABS: BG BASE EXCESS -29.3 mmol/L (-2.0-3.0); BG CARBOXYHEMOGLOBIN 0.9 % (0.5-1.5); BG DEOXYHEMOGLOBIN 0.3 % (0.0-5.0); BG FRACTION INSPIRED OXYGEN 50; BG HCO3 ACT 4.8 mmol/L (21.0-28.0); BG METHEMOGLOBIN 0.1 % (0.5-1.5); BG OXYGEN SATURATION 99.7 % (94.0-98.0); BG OXYHEMOGLOBIN 98.7 % (94.0-98.0); BG PCO2 35.2 mmHg (32.0-45.0); BG PH 6.754 (7.350-7.450); BG PO2 358.8 mmHg (83.0-108.0); BG SAMPLE SITE RIGHT RADIAL; BG TOTAL HEMOGLOBIN 9.8 g/dL (12.0-16.0); BG TOTAL RESPIRATORY RATE 12 b/min; BG VENT MODE VENT - AC
[2024-08-11 13:02] LABS: CHLORIDE 114 mEq/L (98-107); POTASSIUM 5.1 mEq/L (3.5-5.1); SODIUM 143 mEq/L (136-145)
[2024-08-11 13:03] LABS: CALCIUM 6.1 mg/dL (8.7-10.4); HEMATOCRIT. 36.3 % (36.0-48.0); HEMOGLOBIN. 9.2 g/dL (12.0-16.0); MEAN CORPUSCULAR HEMOGLOBIN 27.1 pg (28.0-32.0); MEAN CORPUSCULAR HGB CONC 25.4 g/dL (31.0-37.0); MEAN CORPUSCULAR VOLUME 106.8 fL (81.0-99.0); MEAN PLATELET VOLUME 10.9 fl (7.4-10.4); PLATELET 166 x1000/uL (130-400); RED CELL DISTRIBUTION WIDTH 14.9 % (11.6-14.6); WHITE BLOOD COUNT 21.1 x1000/uL (4.5-11.0)
[2024-08-11 13:08] LABS: LACTIC ACID 2.5 mmol/L (0.4-2.0); TROPONIN I HIGH SENSITIVITY 27 ng/L (3.0-34); UREA NITROGEN BLOOD 31 mg/dL (9-23)
[2024-08-11 13:22] LABS: DIFFERENTIAL COMMENT 1
[2024-08-11 13:24] LABS: CREATININE 2.4 mg/dL (0.6-1.0); ETHANOL BLOOD < 10 mg/dL (<10)
[2024-08-11 13:26] LABS: CARBON DIOXIDE < 10 mEq/L (21-32)
[2024-08-11 13:39] LABS: GLUCOSE 879 mg/dL (70-105); PARTIAL THROMBOPLASTIN TIME 28.7 sec (23.4-31.0); PROTHROMBIN TIME 11.4 sec (9.6-11.0)
[2024-08-11 13:40] LABS: BETA HYDROXYBUTYRATE 10.3 mMol/L (0.0-0.3)
[2024-08-11] MEDS ORDERED: MAGNESIUM 2 G PREMIX 50 ML IV PRN ×2 (13:45→16:45)
[2024-08-11] MEDS ORDERED: POTASSIUM CHLORIDE 40 MEQ in SODIUM CHLORIDE 0.9% 230 ML IV PRN (13:45)
[2024-08-11] MEDS ORDERED: BLOOD SUGAR DIAGNOSTIC STRIP TEST PRN ×2 (13:45→16:45)
[2024-08-11] MEDS: SODIUM CHLORIDE 0.9% 1,000 ML IV SCH ×2 (13:45→19:30)
[2024-08-11] MEDS ORDERED: DEXTROSE 50% WATER 50ML SYRINGE IV PRN (13:45)
[2024-08-11] MEDS ORDERED: KCL 20MEQ/100ML PREMIX 100 ML IV PRN ×2 (13:45→16:45)
[2024-08-11] MEDS ORDERED: SODIUM PHOSPHATE 15 MMOL in SODIUM CHLORIDE 0.9% 245 ML IV PRN (13:45)
[2024-08-11] MEDS ORDERED: DEXT 5%/0.9% NACL 1,000 ML IV SCH (13:45)
[2024-08-11] MEDS: VANCOMYCIN 1G PREMIX 200 ML IV ONE (13:54)
[2024-08-11] MEDS: LABETALOL 5MG/ML 4ML INJ IV ONE (13:55)
[2024-08-11] MEDS: BLOOD SUGAR DIAGNOSTIC STRIP TEST SCH (14:20)
[2024-08-11] MEDS: NOREPINEPHRINE 8MG/250ML PMX 250 ML IV PRN (14:30)
[2024-08-11 14:33] LABS: BG BASE EXCESS -31.5 mmol/L (-2.0-3.0); BG CARBOXYHEMOGLOBIN 0.3 % (0.5-1.5); BG DEOXYHEMOGLOBIN 0.1 % (0.0-5.0); BG FRACTION INSPIRED OXYGEN 50; BG HCO3 ACT 3.5 mmol/L (21.0-28.0); BG METHEMOGLOBIN 0.1 % (0.5-1.5); BG OXYGEN SATURATION 99.9 % (94.0-98.0); BG OXYHEMOGLOBIN 99.5 % (94.0-98.0); BG PCO2 27.6 mmHg (32.0-45.0); BG PO2 249.4 mmHg (83.0-108.0); BG SAMPLE SITE RIGHT RADIAL; BG TOTAL HEMOGLOBIN 10.9 g/dL (12.0-16.0); BG TOTAL RESPIRATORY RATE 12 b/min; BG VENT MODE VENT - AC
[2024-08-11 14:45] VITALS: RESP 20
[2024-08-11] MEDS ORDERED: EPINEPHRINE 10 MG in SODIUM CHLORIDE 0.9% 240 ML IV SCH (15:15)
[2024-08-11 15:30] LABS: CHLORIDE 106 mEq/L (98-107); SODIUM 137 mEq/L (136-145)
[2024-08-11 15:52] LABS: CARBON DIOXIDE < 10 mEq/L (21-32); PHOSPHORUS 10.9 mg/dL (2.5-4.9); POTASSIUM 6.4 mEq/L (3.5-5.1)
[2024-08-11 15:53] LABS: TROPONIN I HIGH SENSITIVITY 119 ng/L (3.0-34)
[2024-08-11 16:01] LABS: GIANT PLATELETS 1+; PLATELET ESTIMATE NORMAL
[2024-08-11] MEDS: PIPERACILLIN/TAZO 3.375G/100ML 100 ML IV ONE (16:19)
[2024-08-11] MEDS: CALCIUM CHLORIDE 1,000 MG in DEXT 5% WATER 100 ML IV ONE (16:20)
[2024-08-11] MEDS ORDERED: NOREPINEPHRINE 8MG/250ML PMX 250 ML IV PRN (16:30)
[2024-08-11] MEDS: INSULIN REGULAR (DRIP) 100 UNITS in SODIUM CHLORIDE 0.9% 99 ML IV SCH (16:36)
[2024-08-11 17:32] LABS: CLARITY URINE CLEAR (CLEAR); COLOR URINE YELLOW (YELLOW); GLUCOSE URINE 3+ (NEGATIVE); KETONES URINE 2+ (NEGATIVE); LEUKOCYTE ESTERASE URINE NEGATIVE (NEGATIVE); NITRITE URINE NEGATIVE (NEGATIVE); OCCULT BLOOD URINE 2+ (NEGATIVE); PH URINE 5.5 (4.5-8.0); PROTEIN URINE 1+ (NEGATIVE); SPECIFIC GRAVITY URINE 1.022 (1.005-1.030); UROBILINOGEN URINE 0.2 E.U./dL (0.2-1.0)
[2024-08-11] MEDS: SODIUM BICARBONATE 100 MEQ in SODIUM CHLORIDE 0.45% 900 ML IV SCH (17:46)
[2024-08-11 17:55] VITALS: PULSE 79; RESP 20; O2SAT 100
[2024-08-11 18:25] LABS: BACTERIA URINE 2+; SQUAMOUS EPITHELIAL CELL URINE 1+ /lpf (RARE/1+)
[2024-08-11] MEDS: DEXT 5%/0.9% NACL 1,000 ML IV SCH (19:30)
[2024-08-11 19:44] LABS: TROPONIN I HIGH SENSITIVITY 352 ng/L (3.0-34)
[2024-08-11 19:50] VITALS: PULSE 86; RESP 40; O2SAT 100
[2024-08-11 20:13] LABS: BG BASE EXCESS -30.4 mmol/L (-2.0-3.0); BG CARBOXYHEMOGLOBIN 0.6 % (0.5-1.5); BG DEOXYHEMOGLOBIN 0.5 % (0.0-5.0); BG FRACTION INSPIRED OXYGEN 30; BG HCO3 ACT 3.5 mmol/L (21.0-28.0); BG OXYGEN SATURATION 99.5 % (94.0-98.0); BG OXYHEMOGLOBIN 98.9 % (94.0-98.0); BG PCO2 23.7 mmHg (32.0-45.0); BG PH 6.784 (7.350-7.450); BG PO2 205.1 mmHg (83.0-108.0); BG SAMPLE SITE RIGHT RADIAL; BG TOTAL HEMOGLOBIN 11.6 g/dL (12.0-16.0); BG TOTAL RESPIRATORY RATE 21 b/min; BG VENT MODE VENT - AC
[2024-08-11 22:29] LABS: HEMATOCRIT. 32.9 % (36.0-48.0); HEMOGLOBIN. 8.6 g/dL (12.0-16.0); MEAN CORPUSCULAR HGB CONC 26.1 g/dL (31.0-37.0); MEAN CORPUSCULAR VOLUME 103.3 fL (81.0-99.0); MEAN PLATELET VOLUME 10.9 fl (7.4-10.4); PLATELET 92 x1000/uL (130-400); RED BLOOD CELL COUNT 3.18 mill/uL (4.2-5.4); WHITE BLOOD COUNT 14.7 x1000/uL (4.5-11.0)
[2024-08-11] MEDS: PANTOPRAZOLE SODIUM 40 MG/VIAL IV SCH (22:30)
[2024-08-11 22:32] LABS: DIFFERENTIAL COMMENT 1
[2024-08-11 22:42] LABS: CHLORIDE 110 mEq/L (98-107); SODIUM 140 mEq/L (136-145)
[2024-08-11 22:47] LABS: UREA NITROGEN BLOOD 34 mg/dL (9-23)
[2024-08-11 22:57] LABS: PLATELET ESTIMATE NORMAL
[2024-08-11 23:00] VITALS: RESP 21; O2SAT 100
[2024-08-11 23:04] LABS: GLUCOSE 937 mg/dL (70-105); PHOSPHORUS 10.3 mg/dL (2.5-4.9)
[2024-08-11 23:05] LABS: CARBON DIOXIDE < 10 mEq/L (21-32); POTASSIUM 6.4 mEq/L (3.5-5.1)
[2024-08-11] MEDS ORDERED: LEVETIRACETAM 1,500MG in NACL 100ML PREMIX IV STA (23:15)
[2024-08-11] MEDS ORDERED: SODIUM CHLORIDE 0.9% 1,000 ML IV NR (23:30)
[2024-08-11] MEDS ORDERED: EPINEPHRINE 10 MG in SODIUM CHLORIDE 0.9% 240 ML IV PRN (23:45)
[2024-08-11] MEDS: LEVETIRACETAM 1500MG PREMIX 100 ML IV SCH (23:45)
[2024-08-12] VITALS (10 sets, daily range): PULSE 87–115; RESP 20–25; O2SAT 100
[2024-08-12] MEDS: SODIUM BICARBONATE 150 MEQ in SODIUM CHLORIDE 0.45% 850 ML IV SCH
[2024-08-12] MEDS: MIDAZOLAM HCL 2 MG/2 ML VIAL IV NR (00:01)
[2024-08-12 00:58] LABS: CHLORIDE 108 mEq/L (98-107); POTASSIUM 5.4 mEq/L (3.5-5.1); SODIUM 141 mEq/L (136-145)
[2024-08-12 00:59] LABS: CALCIUM 8.5 mg/dL (8.7-10.4)
[2024-08-12 01:04] LABS: CREATININE 3.2 mg/dL (0.6-1.0); UREA NITROGEN BLOOD 35 mg/dL (9-23)
[2024-08-12 01:51] LABS: BG BASE EXCESS -25.3 mmol/L (-2.0-3.0); BG CARBOXYHEMOGLOBIN 0.3 % (0.5-1.5); BG DEOXYHEMOGLOBIN 0.5 % (0.0-5.0); BG FRACTION INSPIRED OXYGEN 30; BG HCO3 ACT 5.4 mmol/L (21.0-28.0); BG METHEMOGLOBIN 0.3 % (0.5-1.5); BG OXYGEN SATURATION 99.5 % (94.0-98.0); BG OXYHEMOGLOBIN 98.9 % (94.0-98.0); BG PH 6.955 (7.350-7.450); BG PO2 175.8 mmHg (83.0-108.0); BG SAMPLE SITE RIGHT RADIAL; BG TOTAL HEMOGLOBIN 11.8 g/dL (12.0-16.0); BG TOTAL RESPIRATORY RATE 22 b/min; BG VENT MODE VENT - AC
[2024-08-12 01:56] LABS: CARBON DIOXIDE < 10 mEq/L (21-32); GLUCOSE 887 mg/dL (70-105); PHOSPHORUS 9.7 mg/dL (2.5-4.9)
[2024-08-12] MEDS: INSULIN REGULAR 100U/100ML PMX 100 ML IV SCH (01:59)
[2024-08-12] MEDS: PROPOFOL 10MG/ML 100ML 100 ML IV PRN ×2 (02:00→06:14)
[2024-08-12 05:29] LABS: CHLORIDE 116 mEq/L (98-107); POTASSIUM 3.9 mEq/L (3.5-5.1); SODIUM 146 mEq/L (136-145)
[2024-08-12 05:30] LABS: CALCIUM 6.6 mg/dL (8.7-10.4)
[2024-08-12 05:35] LABS: CREATININE 2.5 mg/dL (0.6-1.0); UREA NITROGEN BLOOD 35 mg/dL (9-23)
[2024-08-12 05:59] LABS: CARBON DIOXIDE < 10 mEq/L (21-32); GLUCOSE 670 mg/dL (70-105)
[2024-08-12] MEDS: LEVETIRACETAM 1500MG PREMIX 100 ML IV SCH (10:08)
[2024-08-12 12:47] LABS: BG BASE EXCESS -12.7 mmol/L (-2.0-3.0); BG CARBOXYHEMOGLOBIN 1.1 % (0.5-1.5); BG DEOXYHEMOGLOBIN 0.8 % (0.0-5.0); BG FRACTION INSPIRED OXYGEN 30; BG HCO3 ACT 14.1 mmol/L (21.0-28.0); BG METHEMOGLOBIN 0.3 % (0.5-1.5); BG OXYGEN SATURATION 99.2 % (94.0-98.0); BG OXYHEMOGLOBIN 97.8 % (94.0-98.0); BG PCO2 35.2 mmHg (32.0-45.0); BG PH 7.219 (7.350-7.450); BG PO2 144.5 mmHg (83.0-108.0); BG SAMPLE SITE RIGHT RADIAL; BG TOTAL HEMOGLOBIN 10.7 g/dL (12.0-16.0); BG VENT MODE VENT - AC
[2024-08-12] MEDS ORDERED: SODIUM CHLORIDE 0.9% 1,000 ML IV SCH (14:15)
[2024-08-12] MEDS: METOPROLOL TARTRATE 50MG TABLET PO NR (15:30)
[2024-08-12 16:32] LABS: CHLORIDE 112 mEq/L (98-107); POTASSIUM 2.9 mEq/L (3.5-5.1); SODIUM 148 mEq/L (136-145)
[2024-08-12 16:33] LABS: CALCIUM 7.1 mg/dL (8.7-10.4); CARBON DIOXIDE 19 mEq/L (21-32)
[2024-08-12 16:38] LABS: CREATININE 2.9 mg/dL (0.6-1.0); GLUCOSE 352 mg/dL (70-105); UREA NITROGEN BLOOD 43 mg/dL (9-23)
[2024-08-12 16:40] LABS: PHOSPHORUS 2.2 mg/dL (2.5-4.9)
[2024-08-12] MEDS: CEFEPIME 1GM/50ML 50 ML IV SCH (18:04)
[2024-08-12] MEDS: VANCOMYCIN 1G PREMIX 200 ML IV NR (18:24)
[2024-08-12] MEDS: DEXT 5%/0.9% NACL 1,000 ML IV SCH (19:23)
[2024-08-12] MEDS: POTASSIUM CHLORIDE 40 MEQ in SODIUM CHLORIDE 0.9% 230 ML IV PRN (21:22)
[2024-08-12] MEDS: SODIUM PHOSPHATE 15 MMOL in SODIUM CHLORIDE 0.9% 245 ML IV PRN (21:25)
[2024-08-12] MEDS: METOPROLOL TARTRATE 50MG TABLET PO SCH (21:42)
[2024-08-12 23:44] LABS: CHLORIDE 122 mEq/L (98-107); POTASSIUM 4.3 mEq/L (3.5-5.1); SODIUM 151 mEq/L (136-145)
[2024-08-12 23:45] LABS: CARBON DIOXIDE 12 mEq/L (21-32)
[2024-08-12 23:50] LABS: CREATININE 2.5 mg/dL (0.6-1.0); GLUCOSE 227 mg/dL (70-105); UREA NITROGEN BLOOD 38 mg/dL (9-23)
[2024-08-12 23:52] LABS: AMMONIA 25 uMol/L (<32); PHOSPHORUS 2.9 mg/dL (2.5-4.9)
[2024-08-13] VITALS (10 sets, daily range): PULSE 67–101; RESP 20; TEMP 37.00296; O2SAT 100
[2024-08-13 00:28] LABS: CALCIUM 5.7 mg/dL (8.7-10.4)
[2024-08-13 01:05] LABS: CHLORIDE 117 mEq/L (98-107); POTASSIUM 5.3 mEq/L (3.5-5.1); SODIUM 146 mEq/L (136-145)
[2024-08-13 01:06] LABS: CALCIUM 6.9 mg/dL (8.7-10.4)
[2024-08-13 01:11] LABS: GLUCOSE 324 mg/dL (70-105); UREA NITROGEN BLOOD 42 mg/dL (9-23)
[2024-08-13 01:13] LABS: PHOSPHORUS 3.9 mg/dL (2.5-4.9)
[2024-08-13 01:43] LABS: CARBON DIOXIDE < 10 mEq/L (21-32)
[2024-08-13] MEDS ORDERED: PHENYLEPHRINE 50MG/250ML PMX 250 ML IV PRN (03:30)
[2024-08-13 03:59] LABS: BG BASE EXCESS -10.7 mmol/L (-2.0-3.0); BG CARBOXYHEMOGLOBIN 0.8 % (0.5-1.5); BG DEOXYHEMOGLOBIN 4.1 % (0.0-5.0); BG FRACTION INSPIRED OXYGEN 30; BG HCO3 ACT 15.5 mmol/L (21.0-28.0); BG METHEMOGLOBIN 0.3 % (0.5-1.5); BG OXYGEN SATURATION 95.9 % (94.0-98.0); BG OXYHEMOGLOBIN 94.8 % (94.0-98.0); BG PCO2 35.6 mmHg (32.0-45.0); BG PEEP (cmH2O) 0 cmH2O; BG PH 7.257 (7.350-7.450); BG PO2 94.5 mmHg (83.0-108.0); BG SAMPLE SITE RIGHT RADIAL; BG TOTAL HEMOGLOBIN 8.7 g/dL (12.0-16.0); BG VENT MODE VENT - AC
[2024-08-13] MEDS: SODIUM BICARBONATE 8.4% 50MEQ/50ML SYR IV NR (04:04)
[2024-08-13] MEDS: PHENYLEPHRINE 50 MG in DEXTROSE 5% WATER 250 ML IV PRN (04:42)
[2024-08-13] MEDS: SODIUM BICARBONATE 150 MEQ in DEXTROSE 5% WATER 850 ML IV SCH (05:55)
[2024-08-13 06:08] LABS: HEMOGLOBIN. 9.6 g/dL (12.0-16.0); MEAN CORPUSCULAR HEMOGLOBIN 27.7 pg (28.0-32.0); MEAN CORPUSCULAR VOLUME 86.4 fL (81.0-99.0); RED BLOOD CELL COUNT 3.48 mill/uL (4.2-5.4); RED CELL DISTRIBUTION WIDTH 13.3 % (11.6-14.6); WHITE BLOOD COUNT 8.8 x1000/uL (4.5-11.0)
[2024-08-13 06:16] LABS: CHLORIDE 119 mEq/L (98-107)
[2024-08-13 06:17] LABS: CALCIUM 6.8 mg/dL (8.7-10.4); CARBON DIOXIDE 10 mEq/L (21-32)
[2024-08-13 06:22] LABS: GLUCOSE 241 mg/dL (70-105); UREA NITROGEN BLOOD 41 mg/dL (9-23)
[2024-08-13 06:24] LABS: PHOSPHORUS 4.9 mg/dL (2.5-4.9)
[2024-08-13 06:38] LABS: INR 1.3; PROTHROMBIN TIME 13.9 sec (9.6-11.0)
[2024-08-13] MEDS: FUROSEMIDE 40MG/4ML VIAL IVP NR (06:45)
[2024-08-13 06:53] LABS: DIFFERENTIAL COMMENT 1; PLATELET 50 x1000/uL (130-400)
[2024-08-13 07:05] LABS: POTASSIUM 3.1 mEq/L (3.5-5.1); SODIUM 154 mEq/L (136-145)
[2024-08-13 08:25] LABS: LACTIC ACID 13.1 mmol/L (0.4-2.0)
[2024-08-13 08:39] LABS: POTASSIUM 3.1 mEq/L (3.5-5.1)
[2024-08-13 08:41] LABS: CALCIUM 6.7 mg/dL (8.7-10.4)
[2024-08-13 10:22] LABS: BG BASE EXCESS -9.9 mmol/L (-2.0-3.0); BG CARBOXYHEMOGLOBIN 0.2 % (0.5-1.5); BG DEOXYHEMOGLOBIN 0.1 % (0.0-5.0); BG FRACTION INSPIRED OXYGEN 100; BG HCO3 ACT 14.7 mmol/L (21.0-28.0); BG METHEMOGLOBIN 0.3 % (0.5-1.5); BG OXYGEN SATURATION 99.9 % (94.0-98.0); BG OXYHEMOGLOBIN 99.4 % (94.0-98.0); BG PCO2 28.2 mmHg (32.0-45.0); BG PH 7.334 (7.350-7.450); BG PO2 430.6 mmHg (83.0-108.0); BG SAMPLE SITE ALINE; BG TOTAL HEMOGLOBIN 10.2 g/dL (12.0-16.0); BG VENT MODE VENT - AC
[2024-08-13 11:18] LABS: T4 FREE 1.43 ng/dL (0.89-1.76); THYROID STIMULATING HORMONE 5.08 uIU/mL (0.55-4.78)
[2024-08-13] MEDS: KCL 20MEQ/100ML PREMIX 100 ML IV NR (11:43)
[2024-08-13] MEDS ORDERED: AMIODARONE HCL 900 MG in DEXT 5% WATER 482 ML IV SCH (12:00)
[2024-08-13] MEDS: AMIODARONE HCL 900 MG in DEXT 5% WATER 482 ML IV SCH (13:21)
[2024-08-13 13:35] LABS: NUCLEATED RED BLOOD CELLS 1 /100 WBC
[2024-08-13 13:36] LABS: PLATELET ESTIMATE DECREASED
[2024-08-13] MEDS ORDERED: PROPOFOL 10MG/ML 100ML 100 ML IV PRN (17:15)
[2024-08-13 23:20] LABS: CREATINE KINASE MB FRACTION 48.4 ng/mL (0.5-3.6)
[2024-08-13] MEDS: LEVETIRACETAM 1,500 MG in SODIUM CHLORIDE 0.9% 100 ML IV SCH (23:29)
[2024-08-14 00:17] VITALS: PULSE 92; RESP 21; O2SAT 100
[2024-08-14] MEDS: VANCOMYCIN 750MG/150ML (BAXTER) IV SCH (00:59)
[2024-08-14 03:00] VITALS: BP 133/57
[2024-08-14 03:19] LABS: CREATINE KINASE MB FRACTION 42.4 ng/mL (0.5-3.6)
[2024-08-14 04:19] VITALS: PULSE 86; RESP 21; O2SAT 100
[2024-08-14] MEDS: DEXTROSE 50% WATER 50ML SYRINGE IV PRN (04:31)
== END 2024-08-14 05:30 | DRG 208 ==
LOC: ER 12:06 → MICUSO 14:02 → EDBEDREQ 14:07 → EDBEDREQTM 14:07 → UNDOADMIN 08-13 14:09 → MICUSO 08-13 14:09
PROVIDERS: ADMIT Internal Medicine; ATTEND Internal Medicine
PROC: 5A1945Z Respiratory Ventilation, 24-96 Consecutive Hours (ICD-10-PCS; principal; 2024-08-11)
PROC: 0BH17EZ Insertion of Endotracheal Airway into Trachea, Via Natural or Artificial Opening (ICD-10-PCS; 2024-08-11)
PROC: 03HY32Z Insertion of Monitoring Device into Upper Artery, Percutaneous Approach (ICD-10-PCS; 2024-08-13)
PROC: 5A12012 Performance of Cardiac Output, Single, Manual (ICD-10-PCS; 2024-08-14)
DX: J96.00 Acute respiratory failure, unspecified whether with hypoxia or hypercapnia (principal); E11.10 Type 2 diabetes mellitus with ketoacidosis without coma; G93.41 Metabolic encephalopathy; N17.0 Acute kidney failure with tubular necrosis; I50.32 Chronic diastolic (congestive) heart failure; D64.9 Anemia, unspecified; E78.5 Hyperlipidemia, unspecified; E87.6 Hypokalemia; I11.0 Hypertensive heart disease with heart failure; I48.91 Unspecified atrial fibrillation; Z86.73 Personal history of transient ischemic attack (TIA), and cerebral infarction without residual deficits
CPT/HCPCS: 31500; 36415; 36556; 36600; 70460; 71045; 80048; 80051; 80061; 80202; 80320; 81003; 82010; 82140; 82330; 82375; 82550; 82553; 82805; 82962; 83036; 83605; 83735; 83880; 83930; 84100; 84145; 84439; 84443; 84484; 85025; 85362; 85379; 85384; 86850; 86900; 87077; 87186; 93005; 93970; 94002; 94003; 99291; J0282; J0692; J1815; J1940; J1953; J2250; J2470; J2543; J2704; J3370; J3480; J3490; J7030; J7042; J7050; J7060; J7070; G0480